=== PATIENT | female | born 1940 | race Caucasian/White ===

== ENCOUNTER 2017-10-04 14:02 | Observation (INO) | payer OTHER ==
[2017-10-04 14:28] VITALS: BMI 31.8
--- NOTE | 2017-10-04 15:05 | PDOC ---
History of Present Illness - General Chief Complaint: Pain, Acute Stated Complaint: ABDOMINAL PAIN, DIARRHEA Time Seen by Provider: 10/04/17 14:36 History Source: Patient Exam Limitations: No Limitations - History of Present Illness Initial Comments: 74 year old woman with h/o GERD, DM, CAD, HTN, HLD, hepatic steatosis, hypothyroidism, and gout who p/w 9/10 umbilical and epigastric discomfort radiating diffusely to her abdomen but nowhere else, which has been fluctuating but always present for the past 2-3 days. This worsened this morning. She additionally notes nausea, vomiting (4 episodes today NBNB), and several episodes of watery brown diarrhea which have been frequent enough to make her skin sore. She has taken Immodium for the symptoms, but no OTC pain relievers or other medications, and has never had these symptoms before. She had a screening colonoscopy about a year ago and was told she had diverticulosis, but denies ever having diverticulitis. Past History - Past Medical History Allergies/Adverse Reactions: Allergies Allergy/AdvReac Type Severity Reaction Status Date / Time No Known Allergies Allergy Verified 10/04/17 14:26 Home Medications: Ambulatory Orders Atorvastatin Ca [Lipitor] 40 mg PO HS 09/02/14 Carvedilol 12.5 mg PO BID 09/02/14 Gemfibrozil 600 mg PO BID 09/02/14 Isosorbide Mononitrate 60 mg PO DAILY 09/02/14 Sitagliptin Phos/Metformin HCl [Janumet Xr 50-1,000 mg Tablet] 1 each PO BID Pantoprazole Sodium [Protonix -] 40 mg PO DAILY #30 tablet.ec 09/05/14 Cholecalciferol (Vitamin D3) [Vitamin D3] 1,000 unit PO DAILY 10/16/14 Glipizide [Glipizide ER] 10 mg PO BID 10/16/14 Levothyroxine [Synthroid -] 100 mcg PO DAILY 10/16/14 Lisinopril [Prinivil -] 2.5 mg PO DAILY 10/16/14 Multivitamins [Multivit ([facility])] 1 tab PO DAILY 10/16/14 Aspirin [ASA -] 81 mg PO DAILY #0 07/09/15 Guar Gum [Benefiber] 1 each PO BID #0 packet 07/09/15 Polyethylene Glycol 3350 [Miralax 255 gm Btl] 17 gm PO DAILY #1 bottle 07/09/15 Anemia: No Asthma: No Cancer: Yes (BREAST LEFT) Cardiac Disorders: Yes (STENTS X 4-2010) CVA: No COPD: No CHF: No Dementia: No Diabetes: Yes GI Disorders: Yes (GASTRITIS.) Disorders: No HTN: Yes Hypercholesterolemia: Yes Liver Disease: No Seizures: No Thyroid Disease: Yes (HYPOTHYROIDISM) - Surgical History Abdominal Surgery: No Appendectomy: No Cardiac Surgery: Yes (CARDIAC STENTS X 4, LAST 2010) Cholecystectomy: No Lung Surgery: No Neurologic Surgery: No Orthopedic Surgery: No - Immunization History Immunization Up to Date: Yes - Suicide/Smoking/Psychosocial Hx Smoking Status: No Smoking History: Never smoked Number of Cigarettes Smoked Daily: 0 Hx Alcohol Use: No Drug/Substance Use Hx: No Substance Use Type: None Hx Substance Use Treatment: No Review of Systems - Review of Systems Constitutional: No: Chills, Fever, Unexplained wgt Loss HEENTM: No: Nose Congestion, Throat Pain Respiratory: No: Cough, Shortness of Breath Cardiac (ROS): No: Chest Pain, Palpitations ABD/GI: No: Constipated, Diarrhea, Nausea, Vomiting : No: Burning, Dysuria Musculoskeletal: No: Back Pain, Neck Pain Integumentary: No: Bruising, Rash Neurological: No: Headache, Numbness, Tingling, Weakness, Dizziness Endocrine: No: Unexplained Weight Gain, Unexplained Weight Loss *Physical Exam - Vital Signs Last Vital Signs Temp Pulse Resp BP Pulse Ox 98 F 102 H 20 120/53 96 10/04/17 14:26 10/04/17 14:26 10/04/17 14:26 10/04/17 14:26 10/04/17 14:26 - Physical Exam General Appearance: Yes: Nourished, Other (nontoxic appearing but a bit uncomfortable, pleasant elderly female accompanied by family at bedside, answering questions appropriately). No: Apparent Distress HEENT: positive: EOMI, ELZA, Normal Voice, Hearing Grossly Normal. negative: Scleral Icterus (R), Scleral Icterus (L), Nasal Congestion Neck: positive: Trachea midline, Supple. negative: Tender, Rigid Respiratory/Chest: positive: Lungs Clear, Normal Breath Sounds. negative: Respiratory Distress, Crackles, Rhonchi, Stridor, Wheezing Cardiovascular: positive: Regular Rhythm, Regular Rate, S1, S2. negative: Edema , JVD, Murmur Gastrointestinal/Abdominal: positive: Normal Bowel Sounds, Soft, Other ( splinting abdomen with arms, minimal umbilical and epigastric ttp without peritoneal signs). negative: Tender, Organomegaly, Pulsatile Mass, Guarding Musculoskeletal: positive: Normal Inspection. negative: Decreased Range of Motion, Vertebral Tenderness Extremity: positive: Normal Capillary Refill, Normal Inspection, Normal Range of Motion. negative: Tender, Cyanosis Integumentary: positive: Normal Color, Dry, Warm. negative: Erythema, Rash, Bruising Neurologic: positive: internist medical doctor md II-XII NML intact (grossly), Fully Oriented, Alert, Normal Mood/Affect, Normal Response, Motor Strength 09/19 ED Treatment Course - LABORATORY CBC & Chemistry Diagram: 10/04/17 16:00 10/04/17 16:00 Medical Decision Making - Medical Decision Making Older adult female patient p/w nonspecific abdominal pain, n/v/d which is NBNB and stool not white. 2 prior intraabdominal surgeries, has been told she has diverticulosis but never had diverticulitis. Initial Vital Signs Temp Pulse Resp BP Pulse Ox 98 F 102 H 20 120/53 96 10/04/17 14:26 10/04/17 14:26 10/04/17 14:26 10/04/17 14:26 10/04/17 14:26 Exam: Well appearing but a bit uncomfortable, splinting abdomen with arms, minimal umbilical and epigastric ttp without peritoneal signs. DDX IBNLT: diverticulitis wwo abscess or perforation, colitis, gastritis, PUD, ACS, UTI/pyelonephritis, AAA/AD, pancreatitis, appendicitis, renal colic, SBO, bowel ischemia, bowel perforation, cholecystitis, ovarian torsion, PID, TOA, ovarian cyst, malignancy, hernia, musculoskeletal, constipation, etc. W/U ordered: CBCD CMP Mg Phos Cardiac panel Lipase UA UCx CT A/P with IV and PO contrast TX ordered: IVF, Ofirmev, Zofran Laboratory Tests 10/04/17 10/04/17 10/04/17 16:00 16:00 16:00 WBC 5.6 RBC 4.16 Hgb 12.7 D Hct 38.5 MCV 92.5 MCH 30.4 MCHC 32.9 RDW 15.3 D Plt Count 171 MPV 10.7 Neutrophils % 83.1 H Lymphocytes % 5.9 L D Monocytes % 8.9 Eosinophils % 2.0 Basophils % 0.1 PTT (Actin FS) Sodium 142 Potassium 5.1 Chloride 111 H Carbon Dioxide 20 L Anion Gap 11 BUN 33 H Creatinine 1.4 H Creat Clearance w eGFR 36.66 Random Glucose 186 H Lactic Acid Calcium 9.1 Phosphorus 2.5 Magnesium 1.1 L Total Bilirubin 0.4 AST 24 ALT 29 Alkaline Phosphatase 74 Creatine Kinase 113 Troponin I < 0.02 Total Protein 7.1 Albumin 3.8 Lipase Urine Color Urine Appearance Urine pH Ur Specific [place] Urine Protein Urine Glucose (UA) Urine Ketones Urine Blood Urine Nitrite Urine Bilirubin Urine Urobilinogen Ur Leukocyte Esterase Stool Occult Blood Blood Type Antibody Screen 10/04/17 10/04/17 10/04/17 16:00 16:00 16:00 WBC RBC Hgb Hct MCV MCH MCHC RDW Plt Count MPV Neutrophils % Lymphocytes % Monocytes % Eosinophils % Basophils % PTT (Actin FS) 27.6 Sodium Potassium Chloride Carbon Dioxide Anion Gap BUN Creatinine Creat Clearance w eGFR Random Glucose Lactic Acid Calcium Phosphorus Magnesium Total Bilirubin AST ALT Alkaline Phosphatase Creatine Kinase Troponin I Total Protein Albumin Lipase 176 Urine Color Ltyellow Urine Appearance Clear Urine pH 5.0 Ur Specific [place] 1.016 Urine Protein Negative Urine Glucose (UA) 1+ H Urine Ketones Negative Urine Blood Negative Urine Nitrite Negative Urine Bilirubin Negative Urine Urobilinogen Negative Ur Leukocyte Esterase Negative Stool Occult Blood Blood Type Antibody Screen 10/04/17 10/04/17 10/04/17 16:00 16:00 16:00 WBC RBC Hgb Hct MCV MCH MCHC RDW Plt Count MPV Neutrophils % Lymphocytes % Monocytes % Eosinophils % Basophils % PTT (Actin FS) Sodium Potassium Chloride Carbon Dioxide Anion Gap BUN Creatinine Creat Clearance w eGFR Random Glucose Lactic Acid 1.6 Calcium Phosphorus Magnesium Total Bilirubin AST ALT Alkaline Phosphatase Creatine Kinase Troponin I Total Protein Albumin Lipase Urine Color Urine Appearance Urine pH Ur Specific [place] Urine Protein Urine Glucose (UA) Urine Ketones Urine Blood Urine Nitrite Urine Bilirubin Urine Urobilinogen Ur Leukocyte Esterase Stool Occult Blood Negative Blood Type Cancelled Antibody Screen Cancelled CXR: NADP Pending CT Abdomen/Pelvis with IV/PO contrast. Patient's care signed out to oncoming resident Dr. Morrison at the end of my shift. *DC/Admit/Observation/Transfer Diagnosis at time of Disposition: Abdominal pain Qualifiers: Abdominal location: generalized Qualified Code(s): R10.84 - Generalized abdominal pain Nausea & vomiting Qualifiers: Vomiting type: unspecified Vomiting Intractability: non-intractable Qualified Code(s): R11.2 - Nausea with vomiting, unspecified Diarrhea Qualifiers: Diarrhea type: unspecified type Qualified Code(s): R19.7 - Diarrhea, unspecified - Referrals Referrals: Rajiv Lino MD [Primary Care Provider] - - Patient Instructions - Post Discharge Activity
[2017-10-04] MEDS ORDERED: ACETAMINOPHEN 1000 MG/100 ML VIAL (NON FORMULARY) IVPB ONE (15:23)
[2017-10-04] MEDS ORDERED: ONDANSETRON 4 MG/2 ML VIAL IVPUSH ONE (15:23)
[2017-10-04] MEDS ORDERED: SODIUM CHLORIDE 0.9% 500 ML INFUS.BAG IV ONE (15:23)
[2017-10-04] MEDS ORDERED: ONDANSETRON 4 MG/2 ML VIAL ONE (15:34)
[2017-10-04] MEDS ORDERED: ACETAMINOPHEN INJECTION 100 ML IVPB ONE (15:34)
[2017-10-04 16:16] LABS: BASO % 0.1 % (0-2.0); HEMATOCRIT 38.5 % (32.4-45.2); HEMOGLOBIN 12.7 GM/dL (10.7-15.3); LYMPH % 5.9 % (8-40); MCH 30.4 pg (25.7-33.7); MCHC 32.9 g/dl (32.0-36.0); MEAN CELL VOLUME 92.5 fl (80-96); MEAN PLT VOLUME 10.7 fl (7.5-11.1); MONO % 8.9 % (3.8-10.2); NEUT % 83.1 % (42.8-82.8); PLATELET COUNT 171 K/MM3 (134-434); RBC 4.16 M/mm3 (3.60-5.2); RDW 15.3 % (11.6-15.6); WHITE BLOOD COUNT 5.6 K/mm3 (4.0-10.0)
[2017-10-04 17:21] LABS: URINE APPEARANCE CLEAR; URINE BILIRUBIN NEGATIVE (<2.0 mg/dL); URINE COLOR LTYELLOW; URINE GLUCOSE (UA) 1+ (NEGATIVE); URINE KETONE NEGATIVE (NEGATIVE); URINE LEUK ESTERASE NEGATIVE (NEGATIVE); URINE NITRITE NEGATIVE (NEGATIVE); URINE PROTEIN NEGATIVE (NEGATIVE); URINE UROBILINOGEN NEGATIVE mg/dL (0.2-1.0)
[2017-10-04 17:22] LABS: ALBUMIN 3.8 g/dl (3.4-5.0); ALK PHOS 74 U/L (45-117); ANION GAP 11 (8-16); BILIRUBIN,TOTAL 0.4 mg/dL (0.2-1.0); BLOOD UREA NITROGEN 33 mg/dL (7-18); CALCIUM 9.1 mg/dL (8.5-10.1); CHLORIDE 111 mmol/L (98-107); CO2 20 mmol/L (21-32); CREATININE 1.4 mg/dL (0.55-1.02); GLUCOSE,RANDOM 186 mg/dL (74-106); PHOSPHOROUS 2.5 mg/dL (2.5-4.9); SGPT/ALT 29 U/L (12-78); SODIUM 142 mmol/L (136-145); TOT PROT 7.1 g/dl (6.4-8.2)
[2017-10-04 17:25] LABS: MAGNESIUM 1.1 mg/dL (1.8-2.4); POTASSIUM 5.1 mmol/L (3.5-5.1); SGOT/AST 24 U/L (15-37)
--- NOTE | 2017-10-04 18:18 | PDOC ---
Attending Attestation - Resident Resident Name: Nieves Young - ED Attending Attestation I have performed the following: I have examined & evaluated the patient, The case was reviewed & discussed with the resident, I agree w/resident's findings & plan, Exceptions are as noted - HPI HPI: 10/04/17 18:18 74 year old woman with h/o GERD, DM, CAD, HTN, HLD, hepatic steatosis, hypothyroidism, and gout who presents with abdominal pain x 3 days. Pt reports N +V as well and watery brown diarrhea. Pt denies any F/C. Denies CP/SOB. States that the pain is mostly in the center of her abdomen but radiates out diffusely. Pt has h/o diverticulosis but never had diverticulitis. - Physicial Exam PE: 10/04/17 18:19 GENERAL: Awake, alert, and fully oriented, in no acute distress HEAD: No signs of trauma EYES: PERRLA, EOMI, sclera anicteric, conjunctiva clear ENT: Auricles normal inspection, hearing grossly normal, nares patent, oropharynx clear without exudates. Moist mucosa NECK: Nontender, no stepoffs, Normal ROM, supple, no lymphadenopathy, JVD, or masses LUNGS: Breath sounds equal, clear to auscultation bilaterally. No wheezes, and no crackles HEART: Regular rate and rhythm, normal S1 and S2, no murmurs, rubs or gallops ABDOMEN: + LLQ tenderness to palpation, normoactive bowel sounds. No guarding, no rebound. No masses EXTREMITIES: Normal range of motion, no edema. No clubbing or cyanosis. No cords, erythema, or tenderness NEUROLOGICAL: Cranial nerves II through XII intact. 5/5 strength and sensation in all extremities, Normal speech, normal gait SKIN: Warm, Dry, normal turgor, no rashes or lesions noted." - Medical Decision Making 10/04/17 18:20 77 F with abdominal pain, vomiting, and diarrhea. Possible gastroenteritis. However, will r/o colitis vs diverticulitis. - Labs - CTAP
[2017-10-04] MEDS ORDERED: MAGNESIUM SULF 50% (8.12 MEQ/2 ML-1 GM VIAL) IVPB ONE (19:10)
--- NOTE | 2017-10-04 19:16 | PDOC ---
*Physical Exam - Vital Signs Last Vital Signs Temp Pulse Resp BP Pulse Ox 98 F 76 18 106/50 95 10/04/17 14:26 10/04/17 21:01 10/04/17 21:01 10/04/17 21:01 10/04/17 21:01 <Mynor Moffett - Last Filed: 10/05/17 00:29> - Vital Signs Last Vital Signs Temp Pulse Resp BP Pulse Ox 98 F 102 H 20 120/53 96 10/04/17 14:26 10/04/17 14:26 10/04/17 14:26 10/04/17 14:26 10/04/17 14:26 <Axel Morrison - Last Filed: 10/05/17 01:17> ED Treatment Course - LABORATORY CBC & Chemistry Diagram: 10/04/17 16:00 10/04/17 16:00 - ADDITIONAL ORDERS Additional order review: Laboratory Results 10/04/17 10/04/17 10/04/17 16:00 16:00 16:00 PTT (Actin FS) Sodium Potassium Chloride Carbon Dioxide Anion Gap BUN Creatinine Creat Clearance w eGFR Random Glucose Lactic Acid 1.6 Calcium Phosphorus Magnesium Total Bilirubin AST ALT Alkaline Phosphatase Creatine Kinase Troponin I Total Protein Albumin Lipase Urine Color Urine Appearance Urine pH Ur Specific [place] Urine Protein Urine Glucose (UA) Urine Ketones Urine Blood Urine Nitrite Urine Bilirubin Urine Urobilinogen Ur Leukocyte Esterase Stool Occult Blood Negative Blood Type Cancelled Antibody Screen Cancelled 10/04/17 10/04/17 10/04/17 16:00 16:00 16:00 PTT (Actin FS) 27.6 Sodium Potassium Chloride Carbon Dioxide Anion Gap BUN Creatinine Creat Clearance w eGFR Random Glucose Lactic Acid Calcium Phosphorus Magnesium Total Bilirubin AST ALT Alkaline Phosphatase Creatine Kinase Troponin I Total Protein Albumin Lipase 176 Urine Color Ltyellow Urine Appearance Clear Urine pH 5.0 Ur Specific [place] 1.016 Urine Protein Negative Urine Glucose (UA) 1+ H Urine Ketones Negative Urine Blood Negative Urine Nitrite Negative Urine Bilirubin Negative Urine Urobilinogen Negative Ur Leukocyte Esterase Negative Stool Occult Blood Blood Type Antibody Screen 10/04/17 10/04/17 16:00 16:00 PTT (Actin FS) Sodium 142 Potassium 5.1 Chloride 111 H Carbon Dioxide 20 L Anion Gap 11 BUN 33 H Creatinine 1.4 H Creat Clearance w eGFR 36.66 Random Glucose 186 H Lactic Acid Calcium 9.1 Phosphorus 2.5 Magnesium 1.1 L Total Bilirubin 0.4 AST 24 ALT 29 Alkaline Phosphatase 74 Creatine Kinase 113 Troponin I < 0.02 Total Protein 7.1 Albumin 3.8 Lipase Urine Color Urine Appearance Urine pH Ur Specific [place] Urine Protein Urine Glucose (UA) Urine Ketones Urine Blood Urine Nitrite Urine Bilirubin Urine Urobilinogen Ur Leukocyte Esterase Stool Occult Blood Blood Type Antibody Screen 10/04/17 16:00 RBC 4.16 MCV 92.5 MCHC 32.9 RDW 15.3 D MPV 10.7 Neutrophils % 83.1 H Lymphocytes % 5.9 L D Monocytes % 8.9 Eosinophils % 2.0 Basophils % 0.1 - Medications Given in the ED: ED Medications Discontinued Medications Generic Name Dose Route Start Last Admin Trade Name Marcela PRN Reason Stop Dose Admin Acetaminophen 1,000 mg 10/04/17 15:23 10/04/17 16:08 Ofirmev Injection - IVPB 10/04/17 15:24 1,000 mg ONCE ONE Administration Magnesium Sulfate/Dextrose 1 gm 10/04/17 20:30 10/04/17 20:44 Magnesium 1gm/D5w - IVPB 10/04/17 20:31 1 gm ONCE ONE Administration Ondansetron HCl 4 mg 10/04/17 15:23 10/04/17 16:08 Zofran Injection IVPUSH 10/04/17 15:24 4 mg ONCE ONE Administration Sodium Chloride 1,000 ml 10/04/17 15:23 10/04/17 16:08 Normal Saline - IV 10/04/17 15:24 1,000 ml ONCE ONE Administration <Mynor Moffett - Last Filed: 10/05/17 00:29> - LABORATORY CBC & Chemistry Diagram: 10/04/17 16:00 10/04/17 16:00 - ADDITIONAL ORDERS Additional order review: Laboratory Results 10/04/17 10/04/17 10/04/17 16:00 16:00 16:00 PTT (Actin FS) Sodium Potassium Chloride Carbon Dioxide Anion Gap BUN Creatinine Creat Clearance w eGFR Random Glucose Lactic Acid 1.6 Calcium Phosphorus Magnesium Total Bilirubin AST ALT Alkaline Phosphatase Creatine Kinase Troponin I Total Protein Albumin Lipase Urine Color Urine Appearance Urine pH Ur Specific [place] Urine Protein Urine Glucose (UA) Urine Ketones Urine Blood Urine Nitrite Urine Bilirubin Urine Urobilinogen Ur Leukocyte Esterase Stool Occult Blood Negative Blood Type Cancelled Antibody Screen Cancelled 10/04/17 10/04/17 10/04/17 16:00 16:00 16:00 PTT (Actin FS) 27.6 Sodium Potassium Chloride Carbon Dioxide Anion Gap BUN Creatinine Creat Clearance w eGFR Random Glucose Lactic Acid Calcium Phosphorus Magnesium Total Bilirubin AST ALT Alkaline Phosphatase Creatine Kinase Troponin I Total Protein Albumin Lipase 176 Urine Color Ltyellow Urine Appearance Clear Urine pH 5.0 Ur Specific [place] 1.016 Urine Protein Negative Urine Glucose (UA) 1+ H Urine Ketones Negative Urine Blood Negative Urine Nitrite Negative Urine Bilirubin Negative Urine Urobilinogen Negative Ur Leukocyte Esterase Negative Stool Occult Blood Blood Type Antibody Screen 10/04/17 10/04/17 16:00 16:00 PTT (Actin FS) Sodium 142 Potassium 5.1 Chloride 111 H Carbon Dioxide 20 L Anion Gap 11 BUN 33 H Creatinine 1.4 H Creat Clearance w eGFR 36.66 Random Glucose 186 H Lactic Acid Calcium 9.1 Phosphorus 2.5 Magnesium 1.1 L Total Bilirubin 0.4 AST 24 ALT 29 Alkaline Phosphatase 74 Creatine Kinase 113 Troponin I < 0.02 Total Protein 7.1 Albumin 3.8 Lipase Urine Color Urine Appearance Urine pH Ur Specific [place] Urine Protein Urine Glucose (UA) Urine Ketones Urine Blood Urine Nitrite Urine Bilirubin Urine Urobilinogen Ur Leukocyte Esterase Stool Occult Blood Blood Type Antibody Screen 10/04/17 16:00 RBC 4.16 MCV 92.5 MCHC 32.9 RDW 15.3 D MPV 10.7 Neutrophils % 83.1 H Lymphocytes % 5.9 L D Monocytes % 8.9 Eosinophils % 2.0 Basophils % 0.1 - Medications Given in the ED: ED Medications Discontinued Medications Generic Name Dose Route Start Last Admin Trade Name Freq PRN Reason Stop Dose Admin Acetaminophen 1,000 mg 10/04/17 15:23 10/04/17 16:08 Ofirmev Injection - IVPB 10/04/17 15:24 1,000 mg ONCE ONE Administration Ondansetron HCl 4 mg 10/04/17 15:23 10/04/17 16:08 Zofran Injection IVPUSH 10/04/17 15:24 4 mg ONCE ONE Administration Sodium Chloride 1,000 ml 10/04/17 15:23 10/04/17 16:08 Normal Saline - IV 10/04/17 15:24 1,000 ml ONCE ONE Administration <Axel Morrison - Last Filed: 10/05/17 01:17> Medical Decision Making - Medical Decision Making 10/04/17 9:00pm Call placed to Imaging television cable installer for estimated time on patient's CT read. Awaiting results. 10:30pm Second call placed to [employer] television cable installer because patient's report was posted at 10: 36pm, however, the report reads unsupported format. Awaiting results. 12:30am Third call placed to [employer] television cable installer due to patient's report not being updated, awaiting results. <Mynor Moffett - Last Filed: 10/05/17 00:29> - Medical Decision Making 10/04/17 19:15 Care taken over from Dr. Gonzalez. 10/04/17 22:37 Patient reporting improvement of symptoms. Labs grossly unconcerning as below. 10/04/17 23:07 ED obs-ing patient per ED protocol. 10/05/17 01:13 CT Concerning for distal colon pseudo thickening; possible small colitis. Admitting for further workup. Laboratory Results - last 24 hr 10/04/17 10/04/17 10/04/17 16:00 16:00 16:00 WBC 5.6 RBC 4.16 Hgb 12.7 D Hct 38.5 MCV 92.5 MCH 30.4 MCHC 32.9 RDW 15.3 D Plt Count 171 MPV 10.7 Neutrophils % 83.1 H Lymphocytes % 5.9 L D Monocytes % 8.9 Eosinophils % 2.0 Basophils % 0.1 PTT (Actin FS) Sodium 142 Potassium 5.1 Chloride 111 H Carbon Dioxide 20 L Anion Gap 11 BUN 33 H Creatinine 1.4 H Creat Clearance w eGFR 36.66 Random Glucose 186 H Lactic Acid Calcium 9.1 Phosphorus 2.5 Magnesium 1.1 L Total Bilirubin 0.4 AST 24 ALT 29 Alkaline Phosphatase 74 Creatine Kinase 113 Troponin I < 0.02 Total Protein 7.1 Albumin 3.8 Lipase Urine Color Urine Appearance Urine pH Ur Specific [place] Urine Protein Urine Glucose (UA) Urine Ketones Urine Blood Urine Nitrite Urine Bilirubin Urine Urobilinogen Ur Leukocyte Esterase Stool Occult Blood Blood Type Antibody Screen 10/04/17 10/04/17 10/04/17 16:00 16:00 16:00 WBC RBC Hgb Hct MCV MCH MCHC RDW Plt Count MPV Neutrophils % Lymphocytes % Monocytes % Eosinophils % Basophils % PTT (Actin FS) 27.6 Sodium Potassium Chloride Carbon Dioxide Anion Gap BUN Creatinine Creat Clearance w eGFR Random Glucose Lactic Acid Calcium Phosphorus Magnesium Total Bilirubin AST ALT Alkaline Phosphatase Creatine Kinase Troponin I Total Protein Albumin Lipase 176 Urine Color Ltyellow Urine Appearance Clear Urine pH 5.0 Ur Specific [place] 1.016 Urine Protein Negative Urine Glucose (UA) 1+ H Urine Ketones Negative Urine Blood Negative Urine Nitrite Negative Urine Bilirubin Negative Urine Urobilinogen Negative Ur Leukocyte Esterase Negative Stool Occult Blood Blood Type Antibody Screen 10/04/17 10/04/17 10/04/17 16:00 16:00 16:00 WBC RBC Hgb Hct MCV MCH MCHC RDW Plt Count MPV Neutrophils % Lymphocytes % Monocytes % Eosinophils % Basophils % PTT (Actin FS) Sodium Potassium Chloride Carbon Dioxide Anion Gap BUN Creatinine Creat Clearance w eGFR Random Glucose Lactic Acid 1.6 Calcium Phosphorus Magnesium Total Bilirubin AST ALT Alkaline Phosphatase Creatine Kinase Troponin I Total Protein Albumin Lipase Urine Color Urine Appearance Urine pH Ur Specific [place] Urine Protein Urine Glucose (UA) Urine Ketones Urine Blood Urine Nitrite Urine Bilirubin Urine Urobilinogen Ur Leukocyte Esterase Stool Occult Blood Negative Blood Type Cancelled Antibody Screen Cancelled <Axel Morrison - Last Filed: 10/05/17 01:17> *DC/Admit/Observation/Transfer - Attestations Scribe Attestion: 10/04/17 22:51 Documentation prepared by Mynor Moffett, acting as medical physics researcher for Porfirio Reyes MD. <Mynor Moffett - Last Filed: 10/05/17 00:29> - Discharge Dispostion Decision to Admit order: Yes <Axel Morrison - Last Filed: 10/05/17 01:17> Diagnosis at time of Disposition: Abdominal pain Qualifiers: Abdominal location: generalized Qualified Code(s): R10.84 - Generalized abdominal pain Nausea & vomiting Qualifiers: Vomiting type: unspecified Vomiting Intractability: non-intractable Qualified Code(s): R11.2 - Nausea with vomiting, unspecified Diarrhea Qualifiers: Diarrhea type: unspecified type Qualified Code(s): R19.7 - Diarrhea, unspecified
[2017-10-04] MEDS ORDERED: MAGNESIUM 1GM/D5W 100ML - 100 ML IVPB IVPB ONE (20:30)
--- NOTE | 2017-10-04 23:46 | HP ---
CHIEF COMPLAINT: abdominal pain PCP: Dr. Cornelius HISTORY OF PRESENT ILLNESS: 77 yr old woman with DM, HTN, HLD, hx of left breast Ca s/p radiation, gout, presents with abdominal pain, NBNB vomiting and multiple episodes of loose bowel movements. abdominal pain is 9/10, diffuse, radiating out from her umbilicus, lasting for past 3 days with progression this morning. a/w nausea and vomiting 4 episodes at home and 1 earlier in ed. no relief with OTC immodium. denies previous hx of symptoms. She was on antibiotics 1 month ago for bronchitis, 1 was for 10days and one for 5days but she does not recall the name of the antibiotics denies hematochezia, constipation, fever, chest pain, trouble swallowing, sob. ER course was notable for: (1) abd pelvis CT with colitis (2) (3) Recent Travel: none PAST MEDICAL HISTORY: DM, HTN, HLD, hepatic steatosis, hx of breast ca PAST SURGICAL HISTORY: hysterectomy due to fibriods age 51 cardiac stents, most recent in 2010 Social History: Smoking: denies Alcohol:denies Drugs: denies Family History: [place] Allergies No Known Allergies Allergy (Verified 10/04/17 14:26) HOME MEDICATIONS: Home Medications Medication Instructions Recorded Atorvastatin Ca [Lipitor] 40 mg PO HS 09/02/14 Carvedilol 12.5 mg PO BID 09/02/14 Gemfibrozil 600 mg PO BID 09/02/14 Isosorbide Mononitrate 60 mg PO DAILY 09/02/14 Sitagliptin Phos/Metformin HCl 1 each PO BID 09/02/14 [Janumet Xr 50-1,000 mg Tablet] Pantoprazole Sodium [Protonix -] 40 mg PO DAILY #30 tablet.ec 09/05/14 Cholecalciferol (Vitamin D3) 1,000 unit PO DAILY 10/16/14 [Vitamin D3] Glipizide [Glipizide ER] 10 mg PO BID 10/16/14 Levothyroxine [Synthroid -] 100 mcg PO DAILY 10/16/14 Lisinopril [Prinivil -] 2.5 mg PO DAILY 10/16/14 Multivitamins [Multivit ([facility] 1 tab PO DAILY 10/16/14 Formulary)] Aspirin [ASA -] 81 mg PO DAILY #0 07/09/15 Guar Gum [Benefiber] 1 each PO BID #0 packet 07/09/15 Polyethylene Glycol 3350 [Miralax 17 gm PO DAILY #1 bottle 07/09/15 255 gm Btl] REVIEW OF SYSTEMS CONSTITUTIONAL: Absent: fever, chills, diaphoresis, generalized weakness, malaise, loss of appetite, weight change HEENT: Absent: rhinorrhea, nasal congestion, throat pain, throat swelling, difficulty swallowing, mouth swelling, ear pain, eye pain, visual changes CARDIOVASCULAR: Absent: chest pain, syncope, palpitations, irregular heart rate, lightheadedness , peripheral edema RESPIRATORY: Absent: cough, shortness of breath, dyspnea with exertion, orthopnea, wheezing, stridor, hemoptysis GASTROINTESTINAL: Present: abdominal pain, nausea, vomiting, diarrhea, Absent: , abdominal distension, constipation, melena, hematochezia GENITOURINARY: Absent: dysuria, frequency, urgency, hesitancy, hematuria, flank pain, MUSCULOSKELETAL: Absent: myalgia, arthralgia, joint swelling, back pain, neck pain SKIN: Absent: rash, itching, pallor HEMATOLOGIC/IMMUNOLOGIC: Absent: easy bleeding, easy bruising, lymphadenopathy, frequent infections ENDOCRINE: Absent: unexplained weight gain, unexplained weight loss, heat intolerance, cold intolerance NEUROLOGIC: Absent: headache, focal weakness or paresthesias, dizziness, unsteady gait, seizure, mental status changes, bladder or bowel incontinence PHYSICAL EXAMINATION Vital Signs - 24 hr 10/04/17 10/04/17 14:26 21:01 Temperature 98 F Pulse Rate 102 H Pulse Rate [ 76 Left] Respiratory 20 18 Rate Blood Pressure 120/53 Blood Pressure 106/50 [Right Arm] O2 Sat by Pulse 96 95 Oximetry (%) GENERAL: Awake, alert, and fully oriented, in no acute distress. HEAD: Normal with no signs of trauma. EYES: Pupils equal, round and reactive to light, extraocular movements intact, sclera anicteric, conjunctiva clear. No lid lag. EARS, NOSE, THROAT: oropharynx clear without exudates. Moist mucous membranes. NECK: Normal range of motion, supple without lymphadenopathy, JVD, or masses. LUNGS: Breath sounds equal, clear to auscultation bilaterally. No wheezes, and no crackles. No accessory muscle use. HEART: Regular rate and rhythm, normal S1 and S2 w. soft systolic murmur in rusb , rub or gallop. ABDOMEN: Soft, nontender, not distended, normoactive bowel sounds, no guarding, no rebound, no masses. MUSCULOSKELETAL: Normal range of motion at all joints. No bony deformities or tenderness. No CVA tenderness. UPPER EXTREMITIES: 2+ radial pulses, warm, well-perfused. No cyanosis. No clubbing. No peripheral edema. LOWER EXTREMITIES: 2+ dp pulses, warm, well-perfused. No calf tenderness. No peripheral edema. NEUROLOGICAL: Cranial nerves II-XII intact. Normal speech. Normal gait. 5/5 handgrip. PSYCHIATRIC: Cooperative. Good eye contact. Appropriate mood and affect. SKIN: Warm, dry, normal turgor, no rashes or lesions noted, normal capillary refill. Laboratory Results - last 24 hr 10/04/17 10/04/17 10/04/17 16:00 16:00 16:00 WBC 5.6 RBC 4.16 Hgb 12.7 D Hct 38.5 MCV 92.5 MCH 30.4 MCHC 32.9 RDW 15.3 D Plt Count 171 MPV 10.7 Neutrophils % 83.1 H Lymphocytes % 5.9 L D Monocytes % 8.9 Eosinophils % 2.0 Basophils % 0.1 PTT (Actin FS) Sodium 142 Potassium 5.1 Chloride 111 H Carbon Dioxide 20 L Anion Gap 11 BUN 33 H Creatinine 1.4 H Creat Clearance w eGFR 36.66 Random Glucose 186 H Lactic Acid Calcium 9.1 Phosphorus 2.5 Magnesium 1.1 L Total Bilirubin 0.4 AST 24 ALT 29 Alkaline Phosphatase 74 Creatine Kinase 113 Troponin I < 0.02 Total Protein 7.1 Albumin 3.8 Lipase Urine Color Urine Appearance Urine pH Ur Specific [place] Urine Protein Urine Glucose (UA) Urine Ketones Urine Blood Urine Nitrite Urine Bilirubin Urine Urobilinogen Ur Leukocyte Esterase Stool Occult Blood Blood Type Antibody Screen 10/04/17 10/04/17 10/04/17 16:00 16:00 16:00 WBC RBC Hgb Hct MCV MCH MCHC RDW Plt Count MPV Neutrophils % Lymphocytes % Monocytes % Eosinophils % Basophils % PTT (Actin FS) 27.6 Sodium Potassium Chloride Carbon Dioxide Anion Gap BUN Creatinine Creat Clearance w eGFR Random Glucose Lactic Acid Calcium Phosphorus Magnesium Total Bilirubin AST ALT Alkaline Phosphatase Creatine Kinase Troponin I Total Protein Albumin Lipase 176 Urine Color Ltyellow Urine Appearance Clear Urine pH 5.0 Ur Specific [place] 1.016 Urine Protein Negative Urine Glucose (UA) 1+ H Urine Ketones Negative Urine Blood Negative Urine Nitrite Negative Urine Bilirubin Negative Urine Urobilinogen Negative Ur Leukocyte Esterase Negative Stool Occult Blood Blood Type Antibody Screen 10/04/17 10/04/17 10/04/17 16:00 16:00 16:00 WBC RBC Hgb Hct MCV MCH MCHC RDW Plt Count MPV Neutrophils % Lymphocytes % Monocytes % Eosinophils % Basophils % PTT (Actin FS) Sodium Potassium Chloride Carbon Dioxide Anion Gap BUN Creatinine Creat Clearance w eGFR Random Glucose Lactic Acid 1.6 Calcium Phosphorus Magnesium Total Bilirubin AST ALT Alkaline Phosphatase Creatine Kinase Troponin I Total Protein Albumin Lipase Urine Color Urine Appearance Urine pH Ur Specific [place] Urine Protein Urine Glucose (UA) Urine Ketones Urine Blood Urine Nitrite Urine Bilirubin Urine Urobilinogen Ur Leukocyte Esterase Stool Occult Blood Negative Blood Type Cancelled Antibody Screen Cancelled Active Medications Acetaminophen (Tylenol -) 1,000 mg PO TID PRN PRN Reason: PAIN Amlodipine Besylate (Norvasc -) 5 mg PO DAILY [facility] Anastrozole (Arimidex -) 1 mg PO DAILY [facility] Aspirin (Asa -) 81 mg PO DAILY [facility] Atorvastatin Calcium (Lipitor -) 40 mg PO HS [facility] Carvedilol (Coreg -) 12.5 mg PO BID [facility] Gemfibrozil (Lopid -) 600 mg PO BID [facility] Glipizide (Glucotrol -) 10 mg PO BIDAC [facility] Metronidazole (Flagyl 500mg Premixed Ivpb -) 500 mg in 100 mls @ 100 mls/hr IVPB Q8H-IV [facility] Last Admin: 10/05/17 02:26 Dose: 100 mls/hr Isosorbide Mononitrate (Imdur -) 60 mg PO DAILY [facility] Levothyroxine Sodium (Synthroid -) 100 mcg PO DAILY@0700 [facility] Non-Formulary Medication (Linagliptin/Metformin Hcl [Jentadueto 2.5 Mg-850 Mg Tab]) 1 each PO BID [facility] Pantoprazole Sodium (Protonix -) 40 mg PO DAILY [facility] ASSESSMENT/PLAN: 77 yr old woman with DM, HTN presents with abdominal pain, placed on observation , pending CT for colitis. #Abdominal pain - likely due to colitis seen on CT scan. - r/o c.dif due to recent abx use - taking po without difficulty now, po challenge - levaquin + flagyl for colitis IV, can likely convert to po in the morning #DILLON - baseline Cr 1.3 - likely due to poor po intake/GI loss of fluids, trend in the AM - IVF for hydration NS @75cc/hr #DM - last A1c 9.4 in 10/2016, check now - NISS with BGM ACHS while inpatient - hold home medications: jentadeuta, gemfibrozil, glipizide #HTN - continue home medications - norvasc 5mg, carvedilol 12.5mg BID #hypothyroidism - 100mcg po daily #HLD - atorvastatin 40mg po hs #dvt prophylaxis Hep subq TID diet: diabetic/low sodium #Dispo: can likely be dc'd with po antibiotics and GI f.u for colonoscopy in 4- 6 six weeks in the morning if tolerating PO and c.diff negative Visit type - Emergency Visit Emergency Visit: Yes ED Registration Date: 10/04/17 Care time: The patient presented to the Emergency Department on the above date and was hospitalized for further evaluation of their emergent condition. - New Patient This patient is new to me today: Yes Date on this admission: 10/04/17 - Critical Care Critical Care patient: No Hospitalist Screening - Colonoscopy Questionnaire Colonoscopy Questionnaire: Colonoscopy Questionnaire - Patient: 50 - 75 years old and never had a screening colonoscopy: Unknown History of colon or rectal polyps, or CA: Unknown History of IBD, Crohn's disease or UC: Unknown History of abdominal radiation therapy as a child: Unknown - Relative: 1 with colon or rectal CA, or polyps at age 60 or younger: Unknown Colon or rectal CA diagnosed at age 45 or younger: Unknown Multiple relatives with colon or rectal CA: Unknown - Outcome: Screening Result: Negative Screen
[2017-10-05] MEDS ORDERED: ACETAMINOPHEN 325 MG TABLET (FP) PO PRN (02:18)
--- NOTE | 2017-10-05 02:25 | PN ---
Teaching Attending Note Name of Resident: Floridalma Suggs ATTENDING PHYSICIAN STATEMENT I saw and evaluated the patient. I reviewed the resident's note and discussed the case with the resident. I agree with the resident's findings and plan as documented. SUBJECTIVE: Patient is a 77 year old woman who presented with chief complaint of abdominal pain, diarrhea and vomiting for one day. The diarrhea was more troubling for her and she has not vomited in over 12 hours. While in the ER she improved and is now pain free with no recent BM. CT scan showed possible mild colitis. Has PMH of DM, HTN, HLD, and left breast Cancer s/p radiation. OBJECTIVE: She is alert and in no acute distress. Vital Signs Period Temp Pulse Resp BP Sys/Chapa Pulse Ox Last 24 Hr 98 F 74-102 18-20 106-142/50-71 95-99 HEENT: No Jaundice, eye redness or discharge, PERRLA, EOMI. External ears are normal and hearing is grossly intact. No nasal discharge. Neck: Supple, nontender. No palpable adenopathy or thyromegaly. No JVD Chest: Good effort. Clear to auscultation and percussion. Heart: Regular. No S3, rub or murmur Abdomen: Obese. Not distended, soft, nontender and no HSM. No rebound or guarding. Normoactive bowel sounds. Ext: Peripheral pulses intact. No leg edema. Skin: Warm and dry. No petechiae, rash or ecchymosis. Neuro: Alert. Oriented x3. CN 2-12 grossly intact. Sensation grossly intact in all four extremities and DTR are symmetric. Current Medications Generic Name Dose Route Start Last Admin Trade Name Freq PRN Reason Stop Dose Admin Metronidazole 500 mg in 100 mls @ 100 mls/hr 10/05/17 02:30 Flagyl 500mg Premixed Ivpb - IVPB Q8H-IV [facility] Levofloxacin 500 mg in 100 mls @ 100 mls/hr 10/05/17 02:16 Levaquin 500 Mg Premixed Ivpb - IVPB 10/05/17 03:15 ONCE ONE Protocol Home Medications Medication Instructions Recorded Acetaminophen [Tylenol] 1,000 mg PO TID PRN 10/05/17 Amlodipine Besylate [Norvasc -] 5 mg PO DAILY 10/05/17 Anastrozole [Arimidex -] 1 mg PO DAILY 10/05/17 Aspirin 81 mg PO DAILY 10/05/17 Atorvastatin Ca [Lipitor] 40 mg PO HS 10/05/17 Carvedilol [Coreg -] 12.5 mg PO BID 10/05/17 Gemfibrozil 600 mg PO BID 10/05/17 Glipizide 10 mg PO BID 10/05/17 Isosorbide Mononitrate [Isosorbide 60 mg PO DAILY 10/05/17 Mononitrate ER] Levothyroxine [Synthroid -] 100 mcg PO DAILY 10/05/17 Linagliptin/Metformin HCl 1 each PO BID 10/05/17 [Jentadueto 2.5 mg-850 mg Tab] Pantoprazole Sodium 40 mg PO DAILY 10/05/17 Laboratory Results - last 24 hr 10/04/17 10/04/17 10/04/17 16:00 16:00 16:00 WBC 5.6 RBC 4.16 Hgb 12.7 D Hct 38.5 MCV 92.5 MCH 30.4 MCHC 32.9 RDW 15.3 D Plt Count 171 MPV 10.7 Neutrophils % 83.1 H Lymphocytes % 5.9 L D Monocytes % 8.9 Eosinophils % 2.0 Basophils % 0.1 PTT (Actin FS) Sodium 142 Potassium 5.1 Chloride 111 H Carbon Dioxide 20 L Anion Gap 11 BUN 33 H Creatinine 1.4 H Creat Clearance w eGFR 36.66 Random Glucose 186 H Lactic Acid Calcium 9.1 Phosphorus 2.5 Magnesium 1.1 L Total Bilirubin 0.4 AST 24 ALT 29 Alkaline Phosphatase 74 Creatine Kinase 113 Troponin I < 0.02 Total Protein 7.1 Albumin 3.8 Lipase Urine Color Urine Appearance Urine pH Ur Specific [place] Urine Protein Urine Glucose (UA) Urine Ketones Urine Blood Urine Nitrite Urine Bilirubin Urine Urobilinogen Ur Leukocyte Esterase Stool Occult Blood Blood Type Antibody Screen 10/04/17 10/04/17 10/04/17 16:00 16:00 16:00 WBC RBC Hgb Hct MCV MCH MCHC RDW Plt Count MPV Neutrophils % Lymphocytes % Monocytes % Eosinophils % Basophils % PTT (Actin FS) 27.6 Sodium Potassium Chloride Carbon Dioxide Anion Gap BUN Creatinine Creat Clearance w eGFR Random Glucose Lactic Acid Calcium Phosphorus Magnesium Total Bilirubin AST ALT Alkaline Phosphatase Creatine Kinase Troponin I Total Protein Albumin Lipase 176 Urine Color Ltyellow Urine Appearance Clear Urine pH 5.0 Ur Specific [place] 1.016 Urine Protein Negative Urine Glucose (UA) 1+ H Urine Ketones Negative Urine Blood Negative Urine Nitrite Negative Urine Bilirubin Negative Urine Urobilinogen Negative Ur Leukocyte Esterase Negative Stool Occult Blood Blood Type Antibody Screen 10/04/17 10/04/17 10/04/17 16:00 16:00 16:00 WBC RBC Hgb Hct MCV MCH MCHC RDW Plt Count MPV Neutrophils % Lymphocytes % Monocytes % Eosinophils % Basophils % PTT (Actin FS) Sodium Potassium Chloride Carbon Dioxide Anion Gap BUN Creatinine Creat Clearance w eGFR Random Glucose Lactic Acid 1.6 Calcium Phosphorus Magnesium Total Bilirubin AST ALT Alkaline Phosphatase Creatine Kinase Troponin I Total Protein Albumin Lipase Urine Color Urine Appearance Urine pH Ur Specific [place] Urine Protein Urine Glucose (UA) Urine Ketones Urine Blood Urine Nitrite Urine Bilirubin Urine Urobilinogen Ur Leukocyte Esterase Stool Occult Blood Negative Blood Type Cancelled Antibody Screen Cancelled ASSESSMENT AND PLAN: 1. Mild colitis - Will be admitted as an observation case and started on Flagyl and Levaquin for colitis. Send any new loose BM for C. Diff toxin. Outpatient GI followup for colonoscopy. 2. DILLON with high normal potassium - Will treat with IV NS at 50 ml/hour and encourage liberal oral fluids to correct azotemia and enhance potassium excretion. Avoid NSAIDS and aminoglycosides. 3. DM - Hold metformin/linagliptin and treat with insulin sliding scale. 4. DVT prophylaxis - Heparin 5000u sq tid 5. Advance directives - Full code
[2017-10-05] MEDS ORDERED: ACETAMINOPHEN 500 MG TABLET (FP) PO PRN (03:49)
[2017-10-05] MEDS: SODIUM CHLORIDE 1,000 ML IV SCH (04:35)
[2017-10-05] MEDS ORDERED: HEPARIN NA (PORCINE) 5,000 UNITS/ML 1ML VIAL ONE (05:48)
[2017-10-05] MEDS ORDERED: LEVOTHYROXINE NA 25 MCG TABLET (FP) ONE (05:48)
[2017-10-05] MEDS: HEPARIN NA (PORCINE) 5,000 UNITS/ML 1ML VIAL SQ SCH ×3 (05:52→22:46)
[2017-10-05] MEDS: LEVOTHYROXINE NA 100 MCG TABLET (FP) PO SCH (06:55)
[2017-10-05] MEDS ORDERED: glipiZIDE 10 MG TABLET (FP) PO SCH (07:00)
[2017-10-05] MEDS: amLODIPine BESYLATE 5 MG TABLET (FP) PO SCH (09:33)
[2017-10-05] MEDS: ASPIRIN 81 MG CHEWABLE TABLETS PO SCH (09:33)
[2017-10-05] MEDS: PANTOPRAZOLE 40 MG TABLET (FP) PO SCH (09:33)
[2017-10-05] MEDS: ISOSORBIDE MONONITRATE 60 MG TAB.SR.24H (FP) PO SCH (09:33)
[2017-10-05] MEDS: ANASTROZOLE 1 MG TABLET PO SCH (09:33)
[2017-10-05] MEDS: CARVEDILOL 12.5 MG TABLET (FP) PO SCH ×2 (09:33→22:46)
[2017-10-05] MEDS ORDERED: GEMFIBROZIL 600 MG TABLET (FP) PO SCH (10:00)
[2017-10-05] MEDS ORDERED: PATIENT'S OWN MEDICATION (NON-FORMULARY) (Linagliptin/Metformin Hcl [Jentadueto 2.5 Mg-850 PO SCH (10:00)
--- NOTE | 2017-10-05 12:21 | PN ---
Progress Note (short form) - Note Progress Note: Pt seen in er. Chart reviewed Feels better Afebrile Denies abd pain today so far Vital Signs Temp 97.8 F 10/05/17 10:44 Pulse 69 10/05/17 10:44 Resp 20 10/05/17 10:44 BP 138/66 10/05/17 10:44 Pulse Ox 96 10/05/17 07:24 Intake & Output 10/04/17 10/05/17 10/05/17 23:59 11:59 23:59 Weight 158 lb Other: Height 4 ft 11 in Body Mass Index (BMI) 31.8 Weight Measurement Method Est/Stated by Patient Active Medications Acetaminophen (Tylenol -) 1,000 mg PO Q8H PRN PRN Reason: PAIN LEVEL 7 - 10 Amlodipine Besylate (Norvasc -) 5 mg PO DAILY [facility] Last Admin: 10/05/17 09:33 Dose: 5 mg Anastrozole (Arimidex -) 1 mg PO DAILY [facility] Last Admin: 10/05/17 09:33 Dose: 1 mg Aspirin (Asa -) 81 mg PO DAILY [facility] Last Admin: 10/05/17 09:33 Dose: 81 mg Atorvastatin Calcium (Lipitor -) 40 mg PO HS [facility] Carvedilol (Coreg -) 12.5 mg PO BID [facility] Last Admin: 10/05/17 09:33 Dose: 12.5 mg Heparin Sodium (Porcine) (Heparin -) 5,000 unit SQ TID [facility] Last Admin: 10/05/17 05:52 Dose: 5,000 unit Metronidazole (Flagyl 500mg Premixed Ivpb -) 500 mg in 100 mls @ 100 mls/hr IVPB Q8H-IV [facility] Last Admin: 10/05/17 09:33 Dose: 100 mls/hr Sodium Chloride (Normal Saline -) 1,000 mls @ 75 mls/hr IV ASDIR [facility] Last Admin: 10/05/17 04:35 Dose: 75 mls/hr Insulin Aspart (Novolog Vial Sliding Scale -) 1 vial SQ ACHS [facility] PRN Reason: Protocol Insulin Detemir (Levemir Vial) 10 units SQ HS [facility] Isosorbide Mononitrate (Imdur -) 60 mg PO DAILY [facility] Last Admin: 10/05/17 09:33 Dose: 60 mg Levothyroxine Sodium (Synthroid -) 100 mcg PO DAILY@0700 [facility] Last Admin: 10/05/17 06:55 Dose: 100 mcg Pantoprazole Sodium (Protonix -) 40 mg PO DAILY [facility] Last Admin: 10/05/17 09:33 Dose: 40 mg CBC, BMP 10/04/17 16:00 Physical Constitutional: Yes: No Distress. calm Cardiovascular: Yes: Regular Rate and Rhythm Respiratory: Yes: Diminished Gastrointestinal: Yes: Normal Bowel Sounds, Soft, obese/ non tender Edema: Yes CT Scan-- No acute pathology Assessment/Plan Abdominal pain Diabetes HTN Overall better continue present care stool studies pending Monitor diet check esr- added Monitor bgm-- Basal Insulin added check tsh. If stable and better - will consider discharge tomorrow will follow Problem List - Problems (1) Abdominal pain Code(s): R10.9 - UNSPECIFIED ABDOMINAL PAIN Qualifiers: Abdominal location: generalized Qualified Code(s): R10.84 - Generalized abdominal pain (2) Diarrhea Code(s): R19.7 - DIARRHEA, UNSPECIFIED Qualifiers: Diarrhea type: unspecified type Qualified Code(s): R19.7 - Diarrhea, unspecified (3) Breast cancer, left Code(s): C50.912 - MALIGNANT NEOPLASM OF UNSPECIFIED SITE OF LEFT FEMALE BREAST (4) Diabetes Code(s): E11.9 - TYPE 2 DIABETES MELLITUS WITHOUT COMPLICATIONS (5) HTN (hypertension), benign Code(s): I10 - ESSENTIAL (PRIMARY) HYPERTENSION (6) Hypothyroid Code(s): E03.9 - HYPOTHYROIDISM, UNSPECIFIED
[2017-10-05] MEDS: INSULIN SLIDING SCALE (NOVOLOG) 1 VIAL SQ SCH ×3 (13:06→22:46)
[2017-10-05 14:24] LABS: INR 1.32 (0.82-1.09); PROTHROMBIN TIME (PATIENT) 14.9 SEC (9.7-13.0)
[2017-10-05 17:10] LABS: ANION GAP 8 (8-16); BLOOD UREA NITROGEN 20 mg/dL (7-18); CALCIUM 8.5 mg/dL (8.5-10.1); CHLORIDE 111 mmol/L (98-107); CO2 21 mmol/L (21-32); CREATININE 1.2 mg/dL (0.55-1.02); GLUCOSE,RANDOM 229 mg/dL (74-106); MAGNESIUM 1.2 mg/dL (1.8-2.4); SODIUM 140 mmol/L (136-145)
[2017-10-05] MEDS ORDERED: MAGNESIUM 2GM/50ML STERILE WATER IVPB IVPB ONE (20:35)
[2017-10-05] MEDS ORDERED: ATORVASTATIN CA 40 MG TABLET (FP) PO SCH (22:00)
[2017-10-05] MEDS ORDERED: INSULIN (LEVEMIR) 100 UNITS/ML UNITS SQ SCH (22:00)
[2017-10-05] MEDS ORDERED: PT OWN MED DRAWER 7, Y5N ONE (22:45)
--- NOTE | 2017-10-05 23:53 | EKG ---
Test Reason : Blood Pressure : / mmHG Vent. Rate : 099 BPM Atrial Rate : 099 BPM P-R Int : 142 ms QRS Dur : 084 ms QT Int : 350 ms P-R-T Axes : 054 -03 058 degrees QTc Int : 449 ms SINUS RHYTHM NORMAL ECG WHEN COMPARED WITH ECG OF 02-SEP-2014 11:14, NO SIGNIFICANT CHANGE WAS FOUND Confirmed by UNA LAIRD MD ([id number]) on 10/05/2017 11:52:33 PM Referred By: Confirmed By:UNA LAIRD MD
[2017-10-06] MEDS: SODIUM CHLORIDE 1,000 ML IV SCH ×2 (02:58→06:48)
[2017-10-06] MEDS: HEPARIN NA (PORCINE) 5,000 UNITS/ML 1ML VIAL SQ SCH (06:04)
[2017-10-06] MEDS: INSULIN SLIDING SCALE (NOVOLOG) 1 VIAL SQ SCH ×2 (06:48→11:47)
[2017-10-06] MEDS: LEVOTHYROXINE NA 100 MCG TABLET (FP) PO SCH (06:49)
[2017-10-06 07:42] LABS: BASO % 0.5 % (0-2.0); EOS % 3.6 % (0-4.5); HEMATOCRIT 34.5 % (32.4-45.2); HEMOGLOBIN 11.7 GM/dL (10.7-15.3); LYMPH % 16.9 % (8-40); MCH 31.2 pg (25.7-33.7); MCHC 33.8 g/dl (32.0-36.0); MEAN CELL VOLUME 92.4 fl (80-96); MEAN PLT VOLUME 10.1 fl (7.5-11.1); MONO % 9.2 % (3.8-10.2); NEUT % 69.8 % (42.8-82.8); PLATELET COUNT 157 K/MM3 (134-434); RBC 3.73 M/mm3 (3.60-5.2); RDW 14.8 % (11.6-15.6)
[2017-10-06 08:17] LABS: CHLORIDE 114 mmol/L (98-107); POTASSIUM 4.3 mmol/L (3.5-5.1); SODIUM 141 mmol/L (136-145)
[2017-10-06 09:12] LABS: ALBUMIN 3.5 g/dl (3.4-5.0); ALK PHOS 68 U/L (45-117); ANION GAP 6 (8-16); BILIRUBIN,TOTAL 0.6 mg/dL (0.2-1.0); BLOOD UREA NITROGEN 20 mg/dL (7-18); CO2 21 mmol/L (21-32); CREATININE 1.1 mg/dL (0.55-1.02); GLUCOSE,RANDOM 175 mg/dL (74-106); SGOT/AST 17 U/L (15-37); SGPT/ALT 22 U/L (12-78); TOT PROT 6.4 g/dl (6.4-8.2)
[2017-10-06 10:04] VITALS: BP 144/77; PULSE 90; TEMP 98
[2017-10-06] MEDS ORDERED: PT OWN MED DRAWER 7, Y5N ONE (10:06)
[2017-10-06] MEDS: ISOSORBIDE MONONITRATE 60 MG TAB.SR.24H (FP) PO SCH (10:09)
[2017-10-06] MEDS: ASPIRIN 81 MG CHEWABLE TABLETS PO SCH (10:09)
[2017-10-06] MEDS: CARVEDILOL 12.5 MG TABLET (FP) PO SCH (10:09)
[2017-10-06] MEDS: PANTOPRAZOLE 40 MG TABLET (FP) PO SCH (10:09)
[2017-10-06] MEDS: amLODIPine BESYLATE 5 MG TABLET (FP) PO SCH (10:09)
[2017-10-06] MEDS: ANASTROZOLE 1 MG TABLET PO SCH (10:09)
--- NOTE | 2017-10-06 11:08 | DS ---
Physical Examination Vital Signs: Vital Signs Temperature 98 F 10/06/17 09:45 Pulse Rate 90 10/06/17 09:45 Respiratory Rate 22 10/06/17 09:45 Blood Pressure 144/77 10/06/17 09:45 O2 Sat by Pulse Oximetry (%) 98 10/06/17 02:25 Constitutional: Yes: No Distress, Calm Cardiovascular: Yes: Regular Rate and Rhythm Respiratory: Yes: CTA Bilaterally Gastrointestinal: Yes: Normal Bowel Sounds, Soft, Abdomen, Obese. No: Tenderness Edema: No Labs: CBC, BMP 10/06/17 07:00 10/06/17 07:00 Discharge Summary Reason For Visit: AP, NAUSEA AND VOMITING SHORT STAY Current Active Problems Abdominal pain (Acute) Diarrhea (Acute) Nausea & vomiting (Acute) Hospital Course: Admitted for abdominal pain , nausea Pt had CT ABD -- gallstones pt had relief of pain since yesterday no nausea, tolerated PO Had normal BM Labs unremarkable Stool guaic negative possible cause for pain can be gastritis /gallstones Stable for dc home no further antibiotics advised to follow up with PMD and GI Condition: Good - Instructions Referrals: Rajiv Lino MD [Primary Care Provider] - Alan Moraes MD [Staff Physician] - Disposition: HOME - Home Medications Comprehensive Discharge Medication List: Ambulatory Orders Acetaminophen [Tylenol] 1,000 mg PO TID PRN 10/05/17 Amlodipine Besylate [Norvasc -] 5 mg PO DAILY 10/05/17 Anastrozole [Arimidex -] 1 mg PO DAILY 10/05/17 Aspirin 81 mg PO DAILY 10/05/17 Atorvastatin Ca [Lipitor] 40 mg PO HS 10/05/17 Carvedilol [Coreg -] 12.5 mg PO BID 10/05/17 Gemfibrozil 600 mg PO BID 10/05/17 Glipizide 10 mg PO BID 10/05/17 Isosorbide Mononitrate [Isosorbide Mononitrate ER] 60 mg PO DAILY 10/05/17 Levothyroxine [Synthroid -] 100 mcg PO DAILY 10/05/17 Linagliptin/Metformin HCl [Jentadueto 2.5 mg-850 mg Tab] 1 each PO BID 10/05/17 Pantoprazole Sodium 40 mg PO DAILY 10/05/17
== END 2017-10-06 13:36 | disposition home or self-care (01) ==
LOC: JER 14:02 → JERBED 23:00 → J5S 10-05 21:37
PROVIDERS: ADMIT Internal Medicine; ATTEND Internal Medicine
PROC: 3E03329 Introduction of Other Anti-infective into Peripheral Vein, Percutaneous Approach (ICD-10-PCS; principal; 2017-10-04)
PROC: 3E033GC Introduction of Other Therapeutic Substance into Peripheral Vein, Percutaneous Approach (ICD-10-PCS; 2017-10-04)
PROC: 3E013VG Introduction of Insulin into Subcutaneous Tissue, Percutaneous Approach (ICD-10-PCS; 2017-10-04)
PROC: 3E013GC Introduction of Other Therapeutic Substance into Subcutaneous Tissue, Percutaneous Approach (ICD-10-PCS; 2017-10-04)
PROC: 3E0337Z Introduction of Electrolytic and Water Balance Substance into Peripheral Vein, Percutaneous Approach (ICD-10-PCS; 2017-10-04)
DX: R10.84 Generalized abdominal pain (principal); R11.2 Nausea with vomiting, unspecified; R19.7 Diarrhea, unspecified; N17.9 Acute kidney failure, unspecified; I10 Essential (primary) hypertension; I25.10 Atherosclerotic heart disease of native coronary artery without angina pectoris; E78.5 Hyperlipidemia, unspecified; E11.9 Type 2 diabetes mellitus without complications; E03.9 Hypothyroidism, unspecified; K21.9 Gastro-esophageal reflux disease without esophagitis; C50.912 Malignant neoplasm of unspecified site of left female breast; M10.9 Gout, unspecified; K76.0 Fatty (change of) liver, not elsewhere classified; Z79.82 Long term (current) use of aspirin; Z79.84 Long term (current) use of oral hypoglycemic drugs; Z95.5 Presence of coronary angioplasty implant and graft
CPT/HCPCS: 36415; 71045-TC-FY; 74177-TC; 80048; 80053; 81003; 82272; 82550; 82962; 83036; 83605; 83690; 83735; 84100; 84443; 84484; 85025; 85610; 85651; 85730; 87086; 93005; 93010; 96365; 96372; 96375; 99285-25; G0378; J0131; J1644; J7030

== ENCOUNTER 2017-10-20 11:34 | Inpatient (IN) | payer OTHER ==
[2017-10-20] MEDS ORDERED: SODIUM CHLORIDE 1,000 ML IV ONE (12:36)
[2017-10-20] MEDS ORDERED: ACETAMINOPHEN 1000 MG/100 ML VIAL (NON FORMULARY) IVPB ONE (12:36)
[2017-10-20] MEDS ORDERED: ACETAMINOPHEN INJECTION 100 ML IVPB ONE (12:37)
--- NOTE | 2017-10-20 12:47 | PDOC ---
History of Present Illness - General Chief Complaint: SIRS, Suspected/Possible Stated Complaint: PAIN, FEVER, SHAKING Time Seen by Provider: 10/20/17 12:17 - History of Present Illness Initial Comments: 10/20/17 12:40 77 yo F with h/o with gout, DM, HTN, HLD, CAD ( stent placement x 3 ) h/o left breast Ca s/p radiation who p/w L sided abdominal pain. Patient reports acute onset of sharp LUQ abdominal pain radiating to back and left flank, beginning Thursday (10-18-17) and worsening yesterday in severity. Pain improved with erect positioning. Normal appetite. Denies postprandial pain. Also endorses dark stools x 2-3 days, and nausea without vomiting. Pain not improved with OTC NSAIDs. Denies h/o chronic NSAUD use. Recent admission from 10/04-10/06/17 for colitis. Treated with Levaquin, Flagyl. Denies CP, SOB, orthopnea, diaphoresis, PND, leg pain/swelling, palpitations, diarrhea, constipation, BPR, urinary complaints, weakness, lightheadedness, sensory changes. PMHx: as noted above. Denies h/o abdominal surgery. Denies h/o abnormal colonoscopy or endoscopy. Does not f/w with GI. Denies h/o CABG. PMD admits to Dr. Mireles and Kurtis. ROS: as noted above SHx: Denies Etoh, tobacco use, IVDA. Denies recent travel, or sick contacts. Past History - Past Medical History Allergies/Adverse Reactions: Allergies Allergy/AdvReac Type Severity Reaction Status Date / Time No Known Allergies Allergy Verified 10/20/17 12:01 Home Medications: Ambulatory Orders Acetaminophen [Tylenol] 1,000 mg PO TID PRN 10/05/17 Amlodipine Besylate [Norvasc -] 5 mg PO DAILY 10/05/17 Anastrozole [Arimidex -] 1 mg PO DAILY 10/05/17 Aspirin 81 mg PO DAILY 10/05/17 Atorvastatin Ca [Lipitor] 40 mg PO DAILY 10/05/17 Carvedilol [Coreg -] 12.5 mg PO BID 10/05/17 Gemfibrozil 600 mg PO BID 10/05/17 Glipizide 10 mg PO BID 10/05/17 Isosorbide Mononitrate [Isosorbide Mononitrate ER] 60 mg PO DAILY 10/05/17 Levothyroxine [Synthroid -] 100 mcg PO DAILY 10/05/17 Linagliptin/Metformin HCl [Jentadueto 2.5 mg-850 mg Tab] 1 each PO BID 10/05/17 Pantoprazole Sodium 40 mg PO DAILY 10/05/17 Anemia: No Asthma: No Cancer: Yes (BREAST LEFT) Cardiac Disorders: Yes (STENTS X 4-2010) CVA: No COPD: No CHF: No DVT: No Dementia: No Diabetes: Yes GI Disorders: Yes (GASTRITIS.) Disorders: No HTN: Yes Hypercholesterolemia: Yes Liver Disease: No Seizures: No Thyroid Disease: Yes (HYPOTHYROIDISM) - Surgical History Abdominal Surgery: No Appendectomy: No Cardiac Surgery: Yes (CARDIAC STENTS X 4, LAST 2010) Cholecystectomy: No Lung Surgery: No Neurologic Surgery: No Orthopedic Surgery: No - Immunization History Immunization Up to Date: Yes - Suicide/Smoking/Psychosocial Hx Smoking Status: No Smoking History: Never smoked Number of Cigarettes Smoked Daily: 0 Hx Alcohol Use: No Drug/Substance Use Hx: No Substance Use Type: None Hx Substance Use Treatment: No Review of Systems - Review of Systems Comments:: 10/20/17 12:53 GENERAL/CONSTITUTIONAL: No fever or chills. No weakness. HEAD, EYES, EARS, NOSE AND THROAT: No change in vision. No ear pain or discharge. No sore throat. CARDIOVASCULAR: No chest pain or shortness of breath RESPIRATORY: No cough, wheezing, or hemoptysis. GASTROINTESTINAL: + Abdominal pain and nausea. No vomiting, diarrhea or constipation. GENITOURINARY: No dysuria, frequency, or change in urination. MUSCULOSKELETAL: No joint or muscle swelling or pain. No neck or back pain. SKIN: No rash NEUROLOGIC: No headache, vertigo, loss of consciousness, or change in strength/ sensation. ENDOCRINE: No increased thirst. No abnormal weight change HEMATOLOGIC/LYMPHATIC: No anemia, easy bleeding, or history of blood clots. ALLERGIC/IMMUNOLOGIC: No hives or skin allergy. *Physical Exam - Vital Signs Last Vital Signs Temp Pulse Resp BP Pulse Ox 101.9 F H 109 H 24 155/106 96 10/20/17 12:29 10/20/17 12:02 10/20/17 12:29 10/20/17 12:02 10/20/17 12:29 - Physical Exam Comments: 10/20/17 12:53 GENERAL: Awake, alert, and fully oriented, in no acute distress HEAD: No signs of trauma, normocephalic, atraumatic EYES: PERRLA, EOMI, sclera anicteric, conjunctiva clear ENT: Auricles normal inspection, hearing grossly normal, nares patent, oropharynx clear without exudates. Moist mucosa NECK: Normal ROM, supple, no lymphadenopathy, JVD, or masses LUNGS: No distress, speaks full sentences, clear to auscultation bilaterally HEART: Regular rate and rhythm, normal S1 and S2, no murmurs, rubs or gallops, peripheral pulses normal and equal bilaterally. ABDOMEN: + LUQ predominant and diffuse ttp. Soft, normoactive bowel sounds. No guarding, no rebound. No masses. Neg CVA ttp. Abdomen protruberant. EXTREMITIES : Normal inspection, Normal range of motion, no edema. No clubbing or cyanosis. NEUROLOGICAL: Cranial nerves II through XII grossly intact. Normal speech, normal gait, no focal sensorimotor deficits SKIN: Warm, Dry, normal turgor, no rashes or lesions noted ED Treatment Course - LABORATORY CBC & Chemistry Diagram: 10/20/17 12:50 10/20/17 12:57 - RADIOLOGY Radiograph Interpretation: 10/20/17 17:17 EXAM#: TYPE/EXAM: RESULT: [id number] US/ABDOMEN US - LIMITED Abdomen ultrasound Clinical information given: abdominal pain There is diffuse fatty infiltration of the liver. The liver appears borderline in overall size. minimal subtle hepatic surface irregularity is noted. No discrete biliary calculus is seen. The gallbladder appears unremarkable in size and wall thickness No pericholecystic fluid is identified. The common bile duct diameter appears borderline measuring 0.7 cm. No gross intraductal calculus is seen. The spleen, kidneys and partially visualized pancreas demonstrate no sonographic abnormality. IMPRESSION: Diffuse hepatic steatosis is noted. Minimal subtle hepatic surface irregularity is noted as on CT studies of 10/20/2017 and 2017 which could be on the basis of cirrhosis. Clinical/laboratory correlation is suggested. The current ultrasound exam demonstrates no definite cholelithiasis. However, an apparent 3 mm gallbladder calculus was visualized on CT. No sonographic evidence of acute cholecystitis. EXAM#: TYPE/EXAM: RESULT: [id number] CT/ABDOMEN PELVIS CT WITH CONTR Abdomen and pelvis CT (with intravenous contrast) Clinical information given: abdominal pain Multiplanar imaging was performed following the intravenous administration of nonionic contrast. As requested enteric contrast was not administered. No evidence of pneumoperitoneum, abscess, free intraperitoneal fluid or bowel obstruction. Cholelithiasis is noted without definite CT evidence of acute cholecystitis. No biliary tract dilatation is identified Minimal to mild surface irregularity is seen along the left hepatic lobe ventrally which may be on the basis of cirrhosis. There is probable diffuse fatty infiltration of the liver. The spleen appears unremarkable in size. The pancreas, adrenal glands and kidneys demonstrate no discrete CT abnormality. Small stable right renal cortical cyst. A 2 cm diverticulum is noted along the medial aspect of the second portion of the duodenal sweep. The appendix appears unremarkable. Sigmoid diverticulosis is seen without CT evidence of acute diverticulitis. No gross small bowel pathology is identified. There is no aortic aneurysm. Status post hysterectomy. No definite pelvic abnormality is noted. IMPRESSION: No definite interval change is identified in comparison to a prior CT study of 10/04. Colonic diverticulosis. Cholelithiasis. Possible hepatic cirrhosis. Probable diffuse hepatic steatosis. If clinically indicated correlate with sonography. 2 cm duodenal diverticulum. Status post hysterectomy. Reported By: Clarence Agudelo MD 10/20/171626 Doroteo Martinez Technologist: Arvin Florian Transcribed Date/Time: 10/20/171626 Consulting Systems Engineer: Clarence Agudelo Medical Decision Making - Medical Decision Making 10/20/17 13:31 77 yo F with h/o with gout, DM, HTN, HLD, CAD ( stent placement x 3 ) h/o left breast Ca s/p radiation who p/w L sided abdominal pain radiating to left sided back. 2/4 SIRS criteria; Rectal temp 101.9, HR 109. A&Ox3. + LUQ predominant and diffuse ttp. Will consider colitis, biliary disease, pancreatitis, gastritis , nephrolithiasis, pyelonephritis, AAA. ED Course: Sepsis Protocol, NS 1 L, Tylenol 1000 mg WBC: 3.8 AST/ALT: 595/350 Lipase: 575 Alk Phosph: 124 Bili: 1.8 LFT's and Lipase elevated from previous admission. 10/20/17 17:16 CT AP: No definite interval change is identified in comparison to a prior CT study of 10/04/2017. Colonic diverticulosis. Cholelithiasis. Possible hepatic cirrhosis. Probable diffuse hepatic steatosis. If clinically indicated correlate with sonography. 2 cm duodenal diverticulum. Status post hysterectomy. RUQ U/S: Diffuse hepatic steatosis is noted. Minimal subtle hepatic surface irregularity is noted as on CT studies of 10/20/2017 and 10/04/2017 which could be on the basis of cirrhosis. Clinical/laboratory correlation is suggested. The current ultrasound exam demonstrates no definite cholelithiasis. However, an apparent 3 mm gallbladder calculus was visualized on CT. No sonographic evidence of acute cholecystitis. 10/20/17 18:20 Patient to be admitted to Dr. Saucedo/inpatient Med/Surg. *DC/Admit/Observation/Transfer Diagnosis at time of Disposition: Sepsis Qualifiers: Sepsis type: sepsis due to unspecified organism Qualified Code(s): A41.9 - Sepsis, unspecified organism Abdominal pain Qualifiers: Abdominal location: generalized Qualified Code(s): R10.84 - Generalized abdominal pain - Discharge Dispostion Decision to Admit order: Yes - Referrals Referrals: Rajiv Lino MD [Primary Care Provider] - - Patient Instructions - Post Discharge Activity
[2017-10-20 12:58] LABS: BASO % 0.1 % (0-2.0); EOS % 0.8 % (0-4.5); HEMATOCRIT 37.5 % (32.4-45.2); HEMOGLOBIN 12.7 GM/dL (10.7-15.3); LYMPH % 6.4 % (8-40); MCH 31.2 pg (25.7-33.7); MCHC 33.8 g/dl (32.0-36.0); MEAN CELL VOLUME 92.4 fl (80-96); MEAN PLT VOLUME 10.1 fl (7.5-11.1); MONO % 1.8 % (3.8-10.2); NEUT % 90.9 % (42.8-82.8); PLATELET COUNT 159 K/MM3 (134-434); RBC 4.06 M/mm3 (3.60-5.2); RDW 15.1 % (11.6-15.6); WHITE BLOOD COUNT 3.8 K/mm3 (4.0-10.0)
[2017-10-20 13:13] LABS: VENOUS PC02 35.9 mmHg (38-52); VENOUS PH 7.4 (7.32-7.42); VENOUS PO2 37.5 mmHg (28-48)
[2017-10-20 13:17] LABS: URINE APPEARANCE CLEAR; URINE BILIRUBIN NEGATIVE (<2.0 mg/dL); URINE BLOOD NEGATIVE (NEGATIVE); URINE COLOR YELLOW; URINE GLUCOSE (UA) 3+ (NEGATIVE); URINE KETONE NEGATIVE (NEGATIVE); URINE LEUK ESTERASE NEGATIVE (NEGATIVE); URINE NITRITE NEGATIVE (NEGATIVE)
[2017-10-20 13:18] LABS: URINE PROTEIN 1+ (NEGATIVE)
[2017-10-20 13:20] LABS: INR 1.11 (0.82-1.09); PROTHROMBIN TIME (PATIENT) 12.5 SEC (9.7-13.0)
[2017-10-20 13:22] LABS: EPI CELLS RARE /HPF (FEW); URINE MUCUS RARE
[2017-10-20 13:23] LABS: ACTIVATED PTT 23.2 SECONDS (26.9-34.4)
[2017-10-20 13:32] LABS: ALBUMIN 3.5 g/dl (3.4-5.0); ANION GAP 10 (8-16); BILIRUBIN,TOTAL 1.8 mg/dL (0.2-1.0); BLOOD UREA NITROGEN 28 mg/dL (7-18); CALCIUM 9.2 mg/dL (8.5-10.1); CHLORIDE 106 mmol/L (98-107); CO2 21 mmol/L (21-32); CREATININE 1.3 mg/dL (0.55-1.02); GLUCOSE,RANDOM 178 mg/dL (74-106); POTASSIUM 4.7 mmol/L (3.5-5.1); SGPT/ALT 350 U/L (12-78); SODIUM 137 mmol/L (136-145); TOT PROT 6.8 g/dl (6.4-8.2)
[2017-10-20 13:33] LABS: ALK PHOS 124 U/L (45-117)
[2017-10-20 13:34] LABS: SGOT/AST 595 U/L (15-37)
--- NOTE | 2017-10-20 14:26 | PDOC ---
Attending Attestation - Resident Resident Name: Doroteo Martinez - ED Attending Attestation I have performed the following: I have examined & evaluated the patient, The case was reviewed & discussed with the resident, I agree w/resident's findings & plan - HPI HPI: 10/20/17 14:22 77-year-old female with history of multiple medical problems including recent admission where she was diagnosed with cholelithiasis presents now with worsening epigastric/left upper quadrant pain since last night, associated with chills and nausea but no vomiting/diarrhea/constipation. The pain as being constant, worsening in severity, so she presents for evaluation. Pain began after eating dinner, but has no history of recurring postprandial abdominal pain. - Physicial Exam PE: 10/20/17 14:23 Febrile rectally, tachycardia, blood pressure stable No jaundice or pallor Abdomen is soft/nondistended. Slight discomfort to palpation in the epigastric region without guarding or rebound, no CVA tenderness No right upper quadrant tenderness or guarding - Medical Decision Making 10/20/17 14:24 77-year-old female presents with worsening epigastric pain since last night. Labs notable for elevated LFTs, lipase pending white count 3.8 with left shift Urinalysis clear Question cholelithiasis/cholecystitis, question pancreatitis, question gastritis /PUD. Check ultrasound of the right upper quadrant, repeat CT of the abdomen and pelvis IV fluids, antipyretics, antibiotics Admission 10/20/17 15:57 lipase 575. imaging for possible gallstone pancreatitis. proceed with admission, GI/surg consults Heart Score/ECG Review #1 ECG reviewed & interpreted by me at: 12:34 General ECG Interpretation: Sinus Rhythm, Normal Rate (103), Normal Intervals ( qtc 432), No acute ischemic changes
[2017-10-20 14:38] LABS: LIPASE 575 U/L (73-393)
[2017-10-20] MEDS ORDERED: PIPERACILLIN/TAZOB 4.5 GM 4.5 GM in DEXTROSE 5%-WATER 100 ML IVPB ONE (16:34)
--- NOTE | 2017-10-20 17:58 | EKG ---
Test Reason : Blood Pressure : / mmHG Vent. Rate : 103 BPM Atrial Rate : 103 BPM P-R Int : 144 ms QRS Dur : 084 ms QT Int : 330 ms P-R-T Axes : 051 -09 053 degrees QTc Int : 432 ms SINUS TACHYCARDIA OTHERWISE NORMAL ECG WHEN COMPARED WITH ECG OF 04-OCT-2017 16:25, NO SIGNIFICANT CHANGE WAS FOUND Confirmed by MD HOMAR, MARQUIS ([id number]) on 10/20/2017 5:57:58 PM Referred By: Confirmed By:MARQUIS GRAF MD
--- NOTE | 2017-10-20 19:02 | HP ---
CHIEF COMPLAINT: LUQ pain under breast and around to left upper back PCP: Dr. Lino/Dr. Hull HISTORY OF PRESENT ILLNESS: 77 year-old female with a PMH significant for HTN, HLD, CAD s/p stents, gout, left breast cancer s/p radiation, nephrolithiasis, and rhabdomy. Patient presented to the ED today with a complaint of left-sided pain focused under the left breast and radiating under axilla to left upper back. On this admission the patient states to this provider the pain started Thursday night and continued unabated through the night accompanied by shaking chills. The pain was focused under the left breast and radiated under the left axilla to left upper back/ flank. The pain resolved this morning without recurrence. Patient denies nausea , vomiting, diarrhea. Denies SOB, VILLAREAL, PND, lower extremity swelling. Denies dysuria, frequency, urgency. No bleeding episodes of any type. Recently admitted 10/04-10/06/17 for colitis treated with levaquin and flagyl. ER course was notable for: (1) T101.9, p 109, WBC 3.8k (2) UA negative (3) CXR: congestive changes, no acute infiltrate (4) CTAP: cholelithiasis without definite cholecystitis, no biliary tract dilitation; possible cirrhosis, probable diffuse fatty liver; diverticulosis without diverticulitis (5) Lactic acid 1.7-->2.1 Recent Travel: No PAST MEDICAL HISTORY: Hypertension Hyperlipidemia Coronary artery disease Gout Left breast cancer PAST SURGICAL HISTORY: Hysterectomy due to fibroids age 51 Cardiac stents, most recent 2010 Social History: Smoking: no Alcohol: no Drugs: no Family History: Allergies No Known Allergies Allergy (Verified 10/20/17 12:01) HOME MEDICATIONS: Home Medications Medication Instructions Recorded Acetaminophen [Tylenol] 1,000 mg PO TID PRN 10/05/17 Amlodipine Besylate [Norvasc -] 5 mg PO DAILY 10/05/17 Anastrozole [Arimidex -] 1 mg PO DAILY 10/05/17 Aspirin 81 mg PO DAILY 10/05/17 Atorvastatin Ca [Lipitor] 40 mg PO DAILY 10/05/17 Carvedilol [Coreg -] 12.5 mg PO BID 10/05/17 Gemfibrozil 600 mg PO BID 10/05/17 Glipizide 10 mg PO BID 10/05/17 Isosorbide Mononitrate [Isosorbide 60 mg PO DAILY 10/05/17 Mononitrate ER] Levothyroxine [Synthroid -] 100 mcg PO DAILY 10/05/17 Linagliptin/Metformin HCl 1 each PO BID 10/05/17 [Jentadueto 2.5 mg-850 mg Tab] Pantoprazole Sodium 40 mg PO DAILY 10/05/17 REVIEW OF SYSTEMS CONSTITUTIONAL: +chills Absent: fever, diaphoresis, generalized weakness, malaise, loss of appetite, weight change HEENT: Absent: rhinorrhea, nasal congestion, throat pain, throat swelling, difficulty swallowing, mouth swelling, ear pain, eye pain, visual changes CARDIOVASCULAR: +pain under left breast radiating to left upper back/flank Absent: chest pain, syncope, palpitations, irregular heart rate, lightheadedness , peripheral edema RESPIRATORY: Absent: cough, shortness of breath, dyspnea with exertion, orthopnea, wheezing, stridor, hemoptysis GASTROINTESTINAL: Absent: abdominal pain, abdominal distension, nausea, vomiting, diarrhea, constipation, melena, hematochezia GENITOURINARY: Absent: dysuria, frequency, urgency, hesitancy, hematuria, flank pain, genital pain MUSCULOSKELETAL: Absent: myalgia, arthralgia, joint swelling, back pain, neck pain SKIN: Absent: rash, itching, pallor HEMATOLOGIC/IMMUNOLOGIC: Absent: easy bleeding, easy bruising, lymphadenopathy, frequent infections ENDOCRINE: Absent: unexplained weight gain, unexplained weight loss, heat intolerance, cold intolerance NEUROLOGIC: Absent: headache, focal weakness or paresthesias, dizziness, unsteady gait, seizure, mental status changes, bladder or bowel incontinence PSYCHIATRIC: Absent: anxiety, depression, suicidal or homicidal ideation, hallucinations. PHYSICAL EXAMINATION Vital Signs - 24 hr 10/20/17 10/20/17 10/20/17 12:02 12:29 13:13 Temperature 99.7 F H 101.9 F H 101.9 F H Pulse Rate 109 H Respiratory 20 24 Rate Blood Pressure 155/106 O2 Sat by Pulse 97 96 Oximetry (%) 10/20/17 13:39 Temperature Pulse Rate Respiratory Rate Blood Pressure O2 Sat by Pulse 98 Oximetry (%) GENERAL/NEURO: Awake, alert, and fully oriented, in no acute distress. HEAD: Normal with no signs of trauma. EYES: Pupils equal, round and reactive to light, extraocular movements intact, sclera anicteric, conjunctiva clear. No lid lag. EARS, NOSE, THROAT: Ears normal, nares patent, oropharynx clear without exudates. Moist mucous membranes. NECK: Normal range of motion, supple without lymphadenopathy, JVD, or masses. LUNGS: Breath sounds equal, clear to auscultation bilaterally. No wheezes, and no crackles. No accessory muscle use. HEART: Regular rate and rhythm, normal S1 and S2 ABDOMEN: Soft, mild RUQ and RLQ tenderness, not distended, normoactive bowel sounds, no guarding, no rebound MUSCULOSKELETAL: Normal range of motion at all joints. No bony deformities or tenderness. No CVA tenderness. UPPER EXTREMITIES: 2+ pulses, warm, well-perfused. No cyanosis. No clubbing. No peripheral edema. LOWER EXTREMITIES: 2+ pulses, warm, well-perfused. No calf tenderness. No peripheral edema. Laboratory Results - last 24 hr 10/20/17 10/20/17 10/20/17 12:50 12:57 12:57 WBC 3.8 L RBC 4.06 Hgb 12.7 Hct 37.5 MCV 92.4 MCH 31.2 MCHC 33.8 RDW 15.1 Plt Count 159 MPV 10.1 Absolute Neuts (auto) 3.4 Neutrophils % 90.9 H Lymphocytes % 6.4 L D Monocytes % 1.8 L D Eosinophils % 0.8 Basophils % 0.1 Nucleated RBC % 0 PT with INR 12.50 INR 1.11 PTT (Actin FS) 23.2 L VBG pH POC VBG pCO2 POC VBG pO2 Mixed VBG HCO3 Sodium 137 Potassium 4.7 Chloride 106 Carbon Dioxide 21 Anion Gap 10 BUN 28 H Creatinine 1.3 H Creat Clearance w eGFR 39.93 Random Glucose 178 H Lactic Acid Calcium 9.2 Total Bilirubin 1.8 H D AST 595 H ALT 350 H Alkaline Phosphatase 124 H Troponin I Total Protein 6.8 Albumin 3.5 Lipase Urine Color Urine Appearance Urine pH Ur Specific [place] Urine Protein Urine Glucose (UA) Urine Ketones Urine Blood Urine Nitrite Urine Bilirubin Urine Urobilinogen Ur Leukocyte Esterase Urine WBC (Auto) Urine RBC (Auto) Ur Epithelial Cells Urine Mucus 10/20/17 10/20/17 10/20/17 12:57 12:57 13:00 WBC RBC Hgb Hct MCV MCH MCHC RDW Plt Count MPV Absolute Neuts (auto) Neutrophils % Lymphocytes % Monocytes % Eosinophils % Basophils % Nucleated RBC % PT with INR INR PTT (Actin FS) VBG pH POC VBG pCO2 POC VBG pO2 Mixed VBG HCO3 Sodium Potassium Chloride Carbon Dioxide Anion Gap BUN Creatinine Creat Clearance w eGFR Random Glucose Lactic Acid 1.7 Calcium Total Bilirubin AST ALT Alkaline Phosphatase Troponin I < 0.02 Total Protein Albumin Lipase 575 H Urine Color Yellow Urine Appearance Clear Urine pH 6.0 Ur Specific [place] 1.014 Urine Protein 1+ H Urine Glucose (UA) 3+ H D Urine Ketones Negative Urine Blood Negative Urine Nitrite Negative Urine Bilirubin Negative Urine Urobilinogen 2.0 H Ur Leukocyte Esterase Negative Urine WBC (Auto) <1 Urine RBC (Auto) <1 Ur Epithelial Cells Rare Urine Mucus Rare ASSESSMENT/PLAN 77 year-old female with a PMH significant for HTN, HLD, CAD s/p stents, gout, left breast cancer s/p radiation, nephrolithiasis, and rhabdomyolysis. Admitted for sepsis of uncertain etiology, LUQ pain, hyperbilirubinema, transaminitis. Sepsis of uncertain etiology --febrile to 101.9, p 109, WBC 3.8k on admission --received 2L bolus, continue hourly rate --start ceftriaxone, flagyl, azithro --hepatitis panel pending Pulmonary congestion --seen on CXR --no h/o heart failure, most recent echo in EMR from 2012 --echo ordered --BNP ordered Lactic acidosis --cautious IV fluids given pulmonary congestion LUQ pain Hyperbilirubinemia Transaminitis --CTAP: cholelithiasis without definite cholecystitis, no biliary tract dilitation; possible cirrhosis, probable diffuse fatty liver; diverticulosis without diverticulitis; HIDA in am --consider musculoskeletal component; similar presentation in 2013 with elevated LFTs, found to have rhabdo; CPK pending --consider congestive hepatopathy; echo pending --consider liver toxicity from statin +/- gemfibrozil; hold these meds --GI following Left breast cancer --continue arimidex FEN Fluids: NS@50mL/hr Electrolytes: replete as indicated Nutrition: NPO DVT prophylaxis: subq heparin, oob, ambulation Physical therapy Dispo: continues to require inpatient care. Full code. Visit type - Emergency Visit Emergency Visit: Yes ED Registration Date: 10/20/17 Care time: The patient presented to the Emergency Department on the above date and was hospitalized for further evaluation of their emergent condition. - New Patient This patient is new to me today: Yes Date on this admission: 10/21/17 - Critical Care Critical Care patient: No Hospitalist Screening - Colonoscopy Questionnaire Colonoscopy Questionnaire: Colonoscopy Questionnaire - Patient: 50 - 75 years old and never had a screening colonoscopy: Unknown History of colon or rectal polyps, or CA: Unknown History of IBD, Crohn's disease or UC: Unknown History of abdominal radiation therapy as a child: Unknown - Relative: 1 with colon or rectal CA, or polyps at age 60 or younger: Unknown Colon or rectal CA diagnosed at age 45 or younger: Unknown Multiple relatives with colon or rectal CA: Unknown - Outcome: Screening Result: Negative Screen
[2017-10-20] MEDS ORDERED: SODIUM CHLORIDE 1,000 ML IV STA (19:18)
--- NOTE | 2017-10-20 20:01 | CON.GI ---
Consult Consult Specialty:: GI Referred by:: Dr Lino/Shady HORN - History of Present Illness History of Present Illness: 77 y/ female with PMH of DM and gall bladder stones was admitted with epigastric pain,nausea and markedly elevated liver enzymes associated with top normal CBD by ultrasound and normal intrahepatic ducts. - Past Medical History Cardio/Vascular: Yes: CAD, HTN, Hyperlipdemia Pulmonary: Yes: Other (never studied for sleep apnea; denies excessive snoring or excessive fatigue/sleep during the day). No: COPD Gastrointestinal: Yes: GERD Musculoskeletal: Yes: Other (?gout of the left foot) Rheumatology: Yes: Gout Endocrine: Yes: Diabetes Mellitus, Hypothyroidism - Past Surgical History Past Surgical History: Yes: Colonoscopy (4 years ago), Upper Endoscopy (gerd. 3 yrs ago) - Alcohol/Substance Use Hx Alcohol Use: No - Smoking History Smoking history: Never smoked Aproximately how many cigarettes per day: 0 - Social History Usual Living Arrangement: With Spouse Home Medications - Allergies Allergies/Adverse Reactions: Allergies Allergy/AdvReac Type Severity Reaction Status Date / Time No Known Allergies Allergy Verified 10/20/17 12:01 - Home Medications Home Medications: Ambulatory Orders Acetaminophen [Tylenol] 1,000 mg PO TID PRN 10/05/17 Amlodipine Besylate [Norvasc -] 5 mg PO DAILY 10/05/17 Anastrozole [Arimidex -] 1 mg PO DAILY 10/05/17 Aspirin 81 mg PO DAILY 10/05/17 Atorvastatin Ca [Lipitor] 40 mg PO DAILY 10/05/17 Carvedilol [Coreg -] 12.5 mg PO BID 10/05/17 Gemfibrozil 600 mg PO BID 10/05/17 Glipizide 10 mg PO BID 10/05/17 Isosorbide Mononitrate [Isosorbide Mononitrate ER] 60 mg PO DAILY 10/05/17 Levothyroxine [Synthroid -] 100 mcg PO DAILY 10/05/17 Linagliptin/Metformin HCl [Jentadueto 2.5 mg-850 mg Tab] 1 each PO BID 10/05/17 Pantoprazole Sodium 40 mg PO DAILY 10/05/17 Family Disease History - Family Disease History Family Disease History: CA: Daughter (crc) Review of Systems - Review of Systems Constitutional: reports: Fever Eyes: reports: Blind Spots HENT: reports: Difficult Swallowing Neck: denies: Decreased ROM Cardiovascular: denies: Chest Pain Gastrointestinal: reports: Abdominal Pain, Bloating. denies: Constipation, Diarrhea, Dysphagia, Indigestion, Melena, Rectal Bleeding Physical Exam-GI Vital Signs: Vital Signs Temperature 99.2 F 10/20/17 17:00 Pulse Rate 81 10/20/17 17:00 Respiratory Rate 18 10/20/17 17:00 Blood Pressure 146/91 10/20/17 17:00 O2 Sat by Pulse Oximetry (%) 98 10/20/17 13:39 Constitutional: Yes: Obese Eyes: Yes: Conjunctiva Clear HENT: Yes: Atraumatic Neck: Yes: Supple. No: Lymphadenopathy Respiratory: Yes: CTA Bilaterally Gastrointestinal Inspection: No: Distention ...Palpate: Yes: Soft. No: Firm/Rigid, Guarding, Hepatomegaly, Mass, Splenomegaly, Tenderness, Tenderness, Epigastium Labs: CBC, BMP 10/20/17 12:50 10/20/17 12:57 INR, PTT INR 1.11 (0.82-1.09) 10/20/17 12:57 Problem List - Problems (1) Elevated liver enzymes Assessment/Plan: doubt secondary to CBD obstruction most likely secondary to drug toxicity and dehydration R> d/w with Miss Caruso this [id number] will hold of lipitor and gemfibrozil and may restart once LFTS less than twice normal and a lower dose and frequency IV hydration serial lfts further w/u as an outpatient HIDa scan in am to r/o cholecystitis Code(s): R74.8 - ABNORMAL LEVELS OF OTHER SERUM ENZYMES
[2017-10-20] MEDS: CEFTRIAXONE 1 GM in DEXTROSE 5%-WATER - 50 ML IVPB SCH (21:25)
[2017-10-20] MEDS ORDERED: SODIUM CHLORIDE 1,000 ML IV SCH (22:00)
[2017-10-20] MEDS: CARVEDILOL 12.5 MG TABLET (FP) PO SCH (22:22)
[2017-10-20] MEDS ORDERED: CARVEDILOL 12.5 MG TABLET (FP) ONE (22:31)
[2017-10-20] MEDS ORDERED: CEFTRIAXONE 1 GM/50 ML BAG ONE (22:31)
[2017-10-20] MEDS: HEPARIN NA (PORCINE) 5,000 UNITS/ML 1ML VIAL SQ SCH (22:40)
[2017-10-20] MEDS: INSULIN SLIDING SCALE (NOVOLOG) 1 VIAL SQ SCH (23:38)
[2017-10-20] MEDS ORDERED: HEPARIN NA (PORCINE) 5,000 UNITS/ML 1ML VIAL ONE (23:41)
[2017-10-21] MEDS: SODIUM CHLORIDE 1,000 ML IV SCH ×2 (00:51→05:15)
[2017-10-21 05:09] VITALS: BMI 29.0
[2017-10-21] MEDS: HEPARIN NA (PORCINE) 5,000 UNITS/ML 1ML VIAL SQ SCH ×2 (06:44→21:30)
[2017-10-21] MEDS: LEVOTHYROXINE NA 100 MCG TABLET (FP) PO SCH (06:45)
[2017-10-21] MEDS: INSULIN SLIDING SCALE (NOVOLOG) 1 VIAL SQ SCH ×4 (06:45→21:31)
[2017-10-21] MEDS ORDERED: DEXTROSE 50%-WATER 25 GM/50 ML DISP.SYRIN IVPUSH ONE (06:50)
[2017-10-21] MEDS ORDERED: DEXTROSE 50%-WATER 25 GM/50 ML DISP.SYRIN ONE (06:54)
[2017-10-21 08:14] LABS: BASO % 0.3 % (0-2.0); EOS % 1.2 % (0-4.5); HEMATOCRIT 29.4 % (32.4-45.2); HEMOGLOBIN 10.2 GM/dL (10.7-15.3); LYMPH % 4.8 % (8-40); MCH 31.7 pg (25.7-33.7); MCHC 34.8 g/dl (32.0-36.0); MEAN CELL VOLUME 91.2 fl (80-96); MEAN PLT VOLUME 10.1 fl (7.5-11.1); MONO % 7.7 % (3.8-10.2); PLATELET COUNT 136 K/MM3 (134-434); RBC 3.22 M/mm3 (3.60-5.2); RDW 15.4 % (11.6-15.6); WHITE BLOOD COUNT 5.1 K/mm3 (4.0-10.0)
[2017-10-21 08:34] LABS: N-TERMINAL BNP 562.18 pg/ml (5-450)
[2017-10-21 08:35] LABS: ALBUMIN 2.8 g/dl (3.4-5.0); ANION GAP 9 (8-16); BILIRUBIN,DIRECT 1.8 mg/dL (0.0-0.2); BLOOD UREA NITROGEN 19 mg/dL (7-18); CALCIUM 8.1 mg/dL (8.5-10.1); CHLORIDE 112 mmol/L (98-107); CO2 20 mmol/L (21-32); GLUCOSE,RANDOM 174 mg/dL (74-106); MAGNESIUM 1.1 mg/dL (1.8-2.4); PHOSPHOROUS 2.4 mg/dL (2.5-4.9); POTASSIUM 4.1 mmol/L (3.5-5.1); SODIUM 141 mmol/L (136-145)
[2017-10-21 08:38] LABS: ALK PHOS 104 U/L (45-117); BILIRUBIN,TOTAL 2.3 mg/dL (0.2-1.0); CREATININE 1.2 mg/dL (0.55-1.02); TOT PROT 5.7 g/dl (6.4-8.2)
[2017-10-21 08:41] LABS: INR 1.39 (0.82-1.09); PROTHROMBIN TIME (PATIENT) 15.7 SEC (9.7-13.0)
[2017-10-21 08:43] LABS: ACTIVATED PTT 30.9 SECONDS (26.9-34.4); SGOT/AST 491 U/L (15-37); SGPT/ALT 524 U/L (12-78)
[2017-10-21 09:38] LABS: ERYTHROCYTE SEDIMENTATION RATE 24 mm/hr (0-30)
[2017-10-21] MEDS ORDERED: ASPIRIN 81 MG CHEWABLE TABLETS PO SCH (10:00)
[2017-10-21] MEDS ORDERED: AZITHROMYCIN IVPB 500 MG in DEXTROSE 5%-WATER - 250 ML IVPB SCH (10:00)
[2017-10-21] MEDS ORDERED: cefTRIAXone SODIUM 1 GM VIAL ONE (10:11)
[2017-10-21] MEDS ORDERED: PT OWN MED DRAWER 7, Y5N ONE ×2 (10:11→13:09)
[2017-10-21] MEDS ORDERED: DEXTROSE 5%-WATER - 50 ML IVPB ONE (10:12)
--- NOTE | 2017-10-21 12:13 | PN ---
Progress Note, Physician Chief Complaint: s/p Chadwick feels well hungry - Current Medication List Current Medications: Active Medications Amlodipine Besylate (Norvasc -) 5 mg PO DAILY [facility] Anastrozole (Arimidex -) 1 mg PO DAILY [facility] Carvedilol (Coreg -) 12.5 mg PO BID [facility] Last Admin: 10/20/17 22:22 Dose: 12.5 mg Heparin Sodium (Porcine) (Heparin -) 5,000 unit SQ TID [facility] Last Admin: 10/21/17 06:44 Dose: 5,000 unit Ceftriaxone Sodium 1 gm/ (Dextrose) 50 mls @ 100 mls/hr IVPB DAILY [facility]; Protocol Last Admin: 10/20/17 21:25 Dose: 100 mls/hr Metronidazole (Flagyl 500mg Premixed Ivpb -) 500 mg in 100 mls @ 100 mls/hr IVPB Q8H-IV [facility] Last Admin: 10/21/17 03:30 Dose: 100 mls/hr Azithromycin 500 mg/ Dextrose 250 mls @ 250 mls/hr IVPB DAILY [facility] Stop: 10/25/17 10:59 Sodium Chloride (Normal Saline -) 1,000 mls @ 50 mls/hr IV ASDIR [facility] Last Admin: 10/21/17 05:15 Dose: 50 mls/hr Insulin Aspart (Novolog Vial Sliding Scale -) 1 vial SQ ACHS [facility]; Protocol Last Admin: 10/21/17 06:45 Dose: Not Given Isosorbide Mononitrate (Imdur -) 60 mg PO DAILY [facility] Levothyroxine Sodium (Synthroid -) 100 mcg PO DAILY@0700 [facility] Last Admin: 10/21/17 06:45 Dose: 100 mcg Pantoprazole Sodium (Protonix -) 40 mg PO DAILY [facility] - Objective Vital Signs: Vital Signs Temperature 99.1 F 10/21/17 08:00 Pulse Rate 65 10/21/17 08:00 Respiratory Rate 22 10/21/17 08:00 Blood Pressure 128/63 10/21/17 08:00 O2 Sat by Pulse Oximetry (%) 98 10/21/17 04:34 Constitutional: Yes: No Distress, Calm Cardiovascular: Yes: Regular Rate and Rhythm Respiratory: Yes: CTA Bilaterally Gastrointestinal: Yes: Normal Bowel Sounds, Soft, Abdomen, Obese. No: Tenderness Edema: No Labs: CBC, BMP 10/21/17 07:20 10/21/17 07:20 INR, PTT INR 1.39 (0.82-1.09) H 10/21/17 07:20 Problem List - Problems (1) Abdominal pain Code(s): R10.9 - UNSPECIFIED ABDOMINAL PAIN Qualifiers: Abdominal location: generalized Qualified Code(s): R10.84 - Generalized abdominal pain (2) Elevated liver enzymes Code(s): R74.8 - ABNORMAL LEVELS OF OTHER SERUM ENZYMES (3) Diabetes Code(s): E11.9 - TYPE 2 DIABETES MELLITUS WITHOUT COMPLICATIONS (4) HTN (hypertension), benign Code(s): I10 - ESSENTIAL (PRIMARY) HYPERTENSION Assessment/Plan PLAN LFT trending down iv fluids HIDA pending iv antibiotics D/w GI
[2017-10-21] MEDS: CEFTRIAXONE 1 GM in DEXTROSE 5%-WATER - 50 ML IVPB SCH (13:04)
[2017-10-21] MEDS: amLODIPine BESYLATE 5 MG TABLET (FP) PO SCH (13:06)
[2017-10-21] MEDS: CARVEDILOL 12.5 MG TABLET (FP) PO SCH ×2 (13:06→21:30)
[2017-10-21] MEDS: PANTOPRAZOLE 40 MG TABLET (FP) PO SCH (13:09)
[2017-10-21] MEDS: ISOSORBIDE MONONITRATE 60 MG TAB.SR.24H (FP) PO SCH (13:10)
[2017-10-21] MEDS: DEXTROSE 5%-NORMAL SALINE 1,000 ML IV SCH (13:11)
[2017-10-21] MEDS: ANASTROZOLE 1 MG TABLET PO SCH (14:25)
[2017-10-21] MEDS ORDERED: IBUPROFEN 800 MG/8 ML IJ IVPB PRN (16:05)
--- NOTE | 2017-10-21 18:18 | PN ---
GI Progress Note Subjective: abdominal pain,nausea and vomiting resolved, Hida revealed delayed visualization of the gallbladder and excretionof the tracer to the duodenum, patient is hungry - Objective Vital Signs: Vital Signs Temperature 99.1 F 10/21/17 08:00 Pulse Rate 65 10/21/17 08:00 Respiratory Rate 22 10/21/17 08:00 Blood Pressure 128/63 10/21/17 08:00 O2 Sat by Pulse Oximetry (%) 95 10/21/17 09:00 Constitutional: Well Nourished, Poor Hygeine HENT: Yes: Atraumatic Neck: Yes: Supple Cardiovascular: Yes: Regular Rate and Rhythm Respiratory: Yes: CTA Bilaterally ...Palpate: Yes: Soft. No: Firm/Rigid, Guarding, Hepatomegaly, Mass, Pulsatile Mass, Splenomegaly Labs: CBC, BMP 10/21/17 07:20 10/21/17 07:20 INR, PTT INR 1.39 (0.82-1.09) H 10/21/17 07:20 Problem List - Problems (1) Elevated liver enzymes Assessment/Plan: R> trial of Acitgall 300mg bid Code(s): R74.8 - ABNORMAL LEVELS OF OTHER SERUM ENZYMES (2) Chronic cholecystitis Assessment/Plan: vs Sphincter of oddi dyskenisia R> advance diet if tolerated solid food in am surgical consultation continue oral antibiotics for 7 days Code(s): K81.1 - CHRONIC CHOLECYSTITIS
[2017-10-21] MEDS: URSODIOL 300 MG CAPSULE PO SCH (21:30)
[2017-10-22] MEDS: DEXTROSE 5%-NORMAL SALINE 1,000 ML IV SCH ×2 (05:52→13:20)
[2017-10-22] MEDS: LEVOTHYROXINE NA 100 MCG TABLET (FP) PO SCH (06:06)
[2017-10-22] MEDS: INSULIN SLIDING SCALE (NOVOLOG) 1 VIAL SQ SCH ×4 (06:06→22:29)
--- NOTE | 2017-10-22 06:17 | CONSULT ---
Consult Consult Specialty:: surgery Reason for Consultation:: abdominal pain - History of Present Illness Chief Complaint: abdominal pain History of Present Illness: 77 yr old female with significant PMedical HX of DM , CAD, HLD, S?P STent x3 , present s with acute onset of epigastric pain radiating to the back of severe intensity. She is now completely pain free and asymptomatic since admission - Past Medical History Cardio/Vascular: Yes: CAD, HTN, Hyperlipdemia Pulmonary: Yes: Other (never studied for sleep apnea; denies excessive snoring or excessive fatigue/sleep during the day). No: COPD Gastrointestinal: Yes: GERD Musculoskeletal: Yes: Other (?gout of the left foot) Rheumatology: Yes: Gout Endocrine: Yes: Diabetes Mellitus, Hypothyroidism - Past Surgical History Past Surgical History: Yes: Colonoscopy (4 years ago), Upper Endoscopy (gerd. 3 yrs ago) - Alcohol/Substance Use Hx Alcohol Use: No - Smoking History Smoking history: Never smoked Aproximately how many cigarettes per day: 0 - Social History Usual Living Arrangement: With Spouse Home Medications - Allergies Allergies/Adverse Reactions: Allergies Allergy/AdvReac Type Severity Reaction Status Date / Time No Known Allergies Allergy Verified 10/20/17 12:01 - Home Medications Home Medications: Ambulatory Orders Acetaminophen [Tylenol] 1,000 mg PO TID PRN 10/05/17 Amlodipine Besylate [Norvasc -] 5 mg PO DAILY 10/05/17 Anastrozole [Arimidex -] 1 mg PO DAILY 10/05/17 Aspirin 81 mg PO DAILY 10/05/17 Atorvastatin Ca [Lipitor] 40 mg PO DAILY 10/05/17 Carvedilol [Coreg -] 12.5 mg PO BID 10/05/17 Gemfibrozil 600 mg PO BID 10/05/17 Glipizide 10 mg PO BID 10/05/17 Isosorbide Mononitrate [Isosorbide Mononitrate ER] 60 mg PO DAILY 10/05/17 Levothyroxine [Synthroid -] 100 mcg PO DAILY 10/05/17 Linagliptin/Metformin HCl [Jentadueto 2.5 mg-850 mg Tab] 1 each PO BID 10/05/17 Pantoprazole Sodium 40 mg PO DAILY 10/05/17 Family Disease History - Family Disease History Family Disease History: CA: Daughter (crc) Physical Exam Vital Signs: Vital Signs Temperature 99.2 F 10/22/17 05:48 Pulse Rate 65 10/22/17 05:48 Respiratory Rate 20 10/22/17 05:48 Blood Pressure 137/69 10/22/17 05:48 O2 Sat by Pulse Oximetry (%) 94 L 10/21/17 21:00 Constitutional: Yes: Obese Labs: CBC, BMP 10/21/17 07:20 10/21/17 07:20 Imaging - Results Cat Scan: Report Reviewed, Image Reviewed Ultrasound: Report Reviewed, Image Reviewed MRI: Report Reviewed, Image Reviewed Problem List - Problems (1) Chronic cholecystitis Code(s): K81.1 - CHRONIC CHOLECYSTITIS Assessment/Plan 77 yr old female with complex past medical history presenting with Acute onset of epigastric pain and all imaging modalities suggest chronic cholecystitis. It is my recommendation that she undergo Laparoscopic cholecystectomy. Although this is not urgent but given she is admitted to the hospital I would be happy to perform the operation during this admission or schedule it for next week according to patient and family's wishes. I attempted to contact the daughter without success. If family agrees and medically cleared will plan surgery for tomorrow am.
[2017-10-22] MEDS ORDERED: PT OWN MED DRAWER 7, Y5N ONE (09:12)
[2017-10-22] MEDS: HEPARIN NA (PORCINE) 5,000 UNITS/ML 1ML VIAL SQ SCH ×2 (09:15→22:29)
[2017-10-22] MEDS: URSODIOL 300 MG CAPSULE PO SCH ×2 (09:15→22:29)
[2017-10-22] MEDS: ANASTROZOLE 1 MG TABLET PO SCH (09:15)
[2017-10-22] MEDS: PANTOPRAZOLE 40 MG TABLET (FP) PO SCH (09:15)
[2017-10-22] MEDS: ISOSORBIDE MONONITRATE 60 MG TAB.SR.24H (FP) PO SCH (09:15)
[2017-10-22] MEDS: amLODIPine BESYLATE 5 MG TABLET (FP) PO SCH (09:15)
[2017-10-22] MEDS: CARVEDILOL 12.5 MG TABLET (FP) PO SCH ×2 (09:15→22:29)
--- NOTE | 2017-10-22 11:58 | PN ---
Progress Note, Physician Chief Complaint: Feels well on clear liquid diet tolerating liquids denies any pain or nausea no diarrhea - Current Medication List Current Medications: Active Medications Amlodipine Besylate (Norvasc -) 5 mg PO DAILY [facility] Last Admin: 10/22/17 09:15 Dose: 5 mg Anastrozole (Arimidex -) 1 mg PO DAILY [facility] Last Admin: 10/22/17 09:15 Dose: 1 mg Carvedilol (Coreg -) 12.5 mg PO BID [facility] Last Admin: 10/22/17 09:15 Dose: 12.5 mg Heparin Sodium (Porcine) (Heparin -) 5,000 unit SQ BID [facility] Last Admin: 10/22/17 09:15 Dose: 5,000 unit Metronidazole (Flagyl 500mg Premixed Ivpb -) 500 mg in 100 mls @ 100 mls/hr IVPB Q8H-IV [facility] Last Admin: 10/22/17 09:15 Dose: 100 mls/hr Dextrose/Sodium Chloride (D5-Ns -) 1,000 mls @ 75 mls/hr IV ASDIR [facility] Last Admin: 10/22/17 05:52 Dose: 75 mls/hr Levofloxacin (Levaquin 250 Mg Premixed Ivpb -) 250 mg in 50 mls @ 50 mls/hr IVPB DAILY [facility] Last Admin: 10/22/17 09:15 Dose: 50 mls/hr Insulin Aspart (Novolog Vial Sliding Scale -) 1 vial SQ ACHS [facility]; Protocol Last Admin: 10/22/17 11:29 Dose: 8 units Isosorbide Mononitrate (Imdur -) 60 mg PO DAILY [facility] Last Admin: 10/22/17 09:15 Dose: 60 mg Levothyroxine Sodium (Synthroid -) 100 mcg PO DAILY@0700 [facility] Last Admin: 10/22/17 06:06 Dose: 100 mcg Pantoprazole Sodium (Protonix -) 40 mg PO DAILY [facility] Last Admin: 10/22/17 09:15 Dose: 40 mg Ursodiol (Actigal -) 300 mg PO BID [facility] Last Admin: 10/22/17 09:15 Dose: 300 mg - Objective Vital Signs: Vital Signs Temperature 98.4 F 10/22/17 07:50 Pulse Rate 58 L 10/22/17 07:50 Respiratory Rate 17 10/22/17 07:50 Blood Pressure 150/72 10/22/17 07:50 O2 Sat by Pulse Oximetry (%) 94 L 10/21/17 21:00 Constitutional: Yes: No Distress, Calm Cardiovascular: Yes: Regular Rate and Rhythm Respiratory: Yes: CTA Bilaterally Gastrointestinal: Yes: Normal Bowel Sounds, Soft, Abdomen, Obese. No: Tenderness Edema: No Labs: CBC, BMP 10/21/17 07:20 10/21/17 07:20 INR, PTT INR 1.39 (0.82-1.09) H 10/21/17 07:20 Problem List - Problems (1) Chronic cholecystitis Code(s): K81.1 - CHRONIC CHOLECYSTITIS (2) Elevated liver enzymes Code(s): R74.8 - ABNORMAL LEVELS OF OTHER SERUM ENZYMES (3) Diabetes Code(s): E11.9 - TYPE 2 DIABETES MELLITUS WITHOUT COMPLICATIONS (4) HTN (hypertension), benign Code(s): I10 - ESSENTIAL (PRIMARY) HYPERTENSION (5) Hypothyroid Code(s): E03.9 - HYPOTHYROIDISM, UNSPECIFIED Assessment/Plan PLAN IV fluiods clear liquids Surgical eval noted Pt agrees for surgery tomorrow Keep NPO past midnight Labs,EKG reviewed Pt medically cleared for Surgery Hold AM heparin sc
[2017-10-22 12:42] LABS: BILIRUBIN,DIRECT 0.9 mg/dL (0.0-0.2)
[2017-10-22 12:44] LABS: BILIRUBIN,TOTAL 1.3 mg/dL (0.2-1.0); TOT PROT 6.2 g/dl (6.4-8.2)
[2017-10-22 16:29] LABS: HEP.C VIRUS AB <0.1 s/co ratio (0.0-0.9)
[2017-10-23] MEDS: LEVOTHYROXINE NA 100 MCG TABLET (FP) PO SCH (06:24)
[2017-10-23] MEDS: INSULIN SLIDING SCALE (NOVOLOG) 1 VIAL SQ SCH ×4 (06:24→21:22)
[2017-10-23] MEDS ORDERED: BUPIVACAINE HCL/PF 0.25% (2.5MG/ML) 10 ML VIAL ONE (07:15)
[2017-10-23] MEDS ORDERED: ROCURONIUM BROMIDE 50 MG/5 ML VIAL ONE (07:23)
[2017-10-23] MEDS ORDERED: SUCCINYLCHOLINE CHLORIDE 200 MG/10 ML VIAL ONE (07:23)
[2017-10-23] MEDS ORDERED: PROPOFOL 20 ML ONE (07:23)
[2017-10-23] MEDS ORDERED: ceFAZolin SODIUM 1 GM VIAL ONE ×2 (08:00→15:55)
[2017-10-23] MEDS ORDERED: ceFAZolin SODIUM 1 GM VIAL IVPB ONE (08:01)
[2017-10-23] MEDS ORDERED: BUPIVACAINE HCL/PF 0.25% (2.5MG/ML) 10 ML VIAL IJ ONE (08:11)
[2017-10-23] MEDS ORDERED: DEXAMETHASONE SOD PHOSPHATE 4 MG/1 ML VIAL ONE (08:39)
[2017-10-23] MEDS ORDERED: ONDANSETRON 4 MG/2 ML VIAL ONE (08:39)
--- NOTE | 2017-10-23 08:52 | OP ---
Operative Note - Note: Operative Date: 10/23/17 Pre-Operative Diagnosis: cholecystitits Operation: lap cholecystectomy Findings: acute cholecystitis Post-Operative Diagnosis: Same as Pre-op Surgeon: Rayshawn Henson Anesthesia: General Specimens Removed: Gall bladder Estimated Blood Loss (mls): 10 Operative Report Dictated: Yes
[2017-10-23] MEDS ORDERED: NEOSTIGMINE METHYLSULFATE 0.5 MG/ML - 10 ML MDV ONE (08:54)
[2017-10-23] MEDS ORDERED: GLYCOPYRROLATE 0.2 MG/1 ML VIAL ONE (08:54)
[2017-10-23] MEDS ORDERED: ONDANSETRON 4 MG/2 ML VIAL IVPUSH PRN (09:26)
--- NOTE | 2017-10-23 09:43 | OP ---
DATE OF OPERATION: 10/23/2017 PREOPERATIVE DIAGNOSIS: Chronic cholecystitis. POSTOPERATIVE DIAGNOSIS: Acute on chronic cholecystitis. PROCEDURE: Laparoscopic cholecystectomy. SURGEON: Rayshawn Henson MD COMPLICATIONS: None. Bleeding was minimal and patient tolerated the procedure well. This is a 77-year-old female with a long history of diabetes, hypertension, coronary artery disease, breast cancer, status post breast surgery and chemotherapy, who presents for abdominal pain to the hospital, evaluated in the emergency room and admitted with right upper quadrant pain. Ultrasound showed there were some gallstones. HIDA scan showed evidence of chronic cholecystitis for which surgical consultation was obtained. After evaluation of the patient and discussing the risks and benefits with patient and family they agreed to proceed with surgery at this time. In the operating room she was placed in the supine position. After the induction of general anesthesia was prepped and draped in the usual sterile fashion. After standard timeout the operation was begun. A transverse periumbilical incision and the standard Esteban approach were used to enter the peritoneal cavity. A 12-mm port was introduced through this incision and insufflation of pressure of 15 mmHg was established. Next under direct vision three 5-mm ports were introduced, 1 in the epigastrium and 2 in the right lower quadrant. The patient was then positioned in the reverse Trendelenburg position. The gallbladder was identified and it was retracted superiorly and laterally. The hilar structures appeared to be adhesed to the duodenum and sharp dissection was performed with scissors to release the duodenum from the hilum of the gallbladder. The hilar structures were dissected bluntly using a [place] dissector to expose the cystic duct as well as cystic artery. They both were circumferentially dissected. The cystic duct was somewhat short but clearly a visible entrance into the common bile duct and a clear view of the fundus with clear exposition of the bare area of the level through the triangle of Calot. At this point then the cystic duct and artery were then doubly ligated with Endoclips and divided with Endoshears and the gallbladder was then dissected off the liver bed with the use of a hook dissector carefully to avoid perforation of the gallbladder or injury to the liver bed. The gallbladder was placed in an EndoCatch bag and then removed completely through the umbilical port. Final check for hemostasis was performed and it was controlled with cautery. The ports were al removed under direct vision. The fascia at the umbilical port was closed with 0 Vicryl sutures. The skin at all port sites was closed with 4-0 Monocryl. Dermabond was applied and the patient was returned to the recovery room awake, alert and in stable condition. She tolerated the procedure well. Do [id number]
[2017-10-23] MEDS ORDERED: oxyCODONE HCL 5 MG TABLET PO PRN (09:52)
--- NOTE | 2017-10-23 10:06 | SURG ---
Surgery Sales Donor Recruitment Representative Note Sales Donor Recruitment Representative: Tisha Riggins PA-C Date of Service: 10/23/17 Diagnosis: cholecystitits Procedure: lap cholecystectomy I was present for the entirety of the operative procedure. For further detail, please refer to operative report. Visit type - Case Type Case Type: ED Admission - Emergency Emergency Visit: Yes ED Registration Date: 10/20/17 Care time: The patient presented to the Emergency Department on the above date and was hospitalized for further evaluation of their emergent condition. - New patient This patient is new to me today: Yes Date on this admission: 10/23/17
[2017-10-23] MEDS: URSODIOL 300 MG CAPSULE PO SCH ×2 (11:05→21:20)
[2017-10-23] MEDS: ANASTROZOLE 1 MG TABLET PO SCH (11:05)
[2017-10-23] MEDS: CARVEDILOL 12.5 MG TABLET (FP) PO SCH ×2 (11:05→21:20)
[2017-10-23] MEDS: HEPARIN NA (PORCINE) 5,000 UNITS/ML 1ML VIAL SQ SCH ×2 (11:05→21:20)
[2017-10-23] MEDS: PANTOPRAZOLE 40 MG TABLET (FP) PO SCH (11:06)
[2017-10-23] MEDS: amLODIPine BESYLATE 5 MG TABLET (FP) PO SCH (11:06)
[2017-10-23] MEDS: ISOSORBIDE MONONITRATE 60 MG TAB.SR.24H (FP) PO SCH (11:06)
--- NOTE | 2017-10-23 12:05 | PN ---
Progress Note (short form) - Note Progress Note: patient seen in the recovery room. Status post lap cholecystectomy Comfortable/and sedated Vital Signs Temp 98.2 F 10/23/17 09:10 Pulse 58 L 10/23/17 10:10 Resp 16 10/23/17 10:10 BP 120/56 10/23/17 10:10 Pulse Ox 93 L 10/23/17 10:10 Intake & Output 10/22/17 10/23/17 10/23/17 23:59 11:59 23:59 Intake Total 1465 1300 Output Total 10 Balance 1465 1290 Intake: IV 375 1300 D5-Ns - 1,000 ml @ 75 mls 375 900 /hr IV ASDIR [facility] Rx#: [id number] IVPB 250 Oral 840 Output: Estimated Blood Loss 10 Other: Voiding Method Toilet # Unmeasured Voids Void 3 Bowel Movement No # Bowel Movements 1 Active Medications Amlodipine Besylate (Norvasc -) 5 mg PO DAILY [facility] Last Admin: 10/23/17 11:06 Dose: Not Given Anastrozole (Arimidex -) 1 mg PO DAILY [facility] Last Admin: 10/23/17 11:05 Dose: Not Given Carvedilol (Coreg -) 12.5 mg PO BID [facility] Last Admin: 10/23/17 11:05 Dose: Not Given Fentanyl (Sublimaze Injection -) 50 mcg IVPUSH [id number] PRN PRN Reason: PAIN-PACU ORDER X 4 DOSES ONLY Heparin Sodium (Porcine) (Heparin -) 5,000 unit SQ BID [facility] Last Admin: 10/23/17 11:05 Dose: Not Given Dextrose/Sodium Chloride (D5-Ns -) 1,000 mls @ 75 mls/hr IV ASDIR [facility] Last Admin: 10/22/17 13:20 Dose: Not Given Cefazolin Sodium 1 gm/ (Dextrose) 50 mls @ 100 mls/hr IVPB Q8H [facility] Stop: 10/24/17 01:29 Insulin Aspart (Novolog Vial Sliding Scale -) 1 vial SQ ACHS [facility]; Protocol Last Admin: 10/23/17 11:06 Dose: Not Given Isosorbide Mononitrate (Imdur -) 60 mg PO DAILY [facility] Last Admin: 10/23/17 11:06 Dose: Not Given Levothyroxine Sodium (Synthroid -) 100 mcg PO DAILY@0700 [facility] Last Admin: 10/23/17 06:24 Dose: 100 mcg Ondansetron HCl (Zofran Injection) 4 mg IVPUSH Q6H PRN PRN Reason: NAUSEA AND/OR VOMITING Oxycodone HCl (Roxicodone -) 5 mg PO Q4H PRN PRN Reason: PAIN LEVEL 1-5 Oxycodone HCl (Roxicodone -) 10 mg PO Q4H PRN PRN Reason: PAIN LEVEL 6-10 Pantoprazole Sodium (Protonix -) 40 mg PO DAILY [facility] Last Admin: 10/23/17 11:06 Dose: Not Given Ursodiol (Actigal -) 300 mg PO BID [facility] Last Admin: 10/23/17 11:05 Dose: Not Given CBC, BMP 10/21/17 07:20 10/21/17 07:20 Microbiology 10/20/17 12:50 Blood Culture - Preliminary Blood - Peripheral Venous NO GROWTH OBTAINED AFTER 48 HOURS, INCUBATION TO CONTINUE FOR 3 DAYS. 10/20/17 12:50 Blood Culture - Preliminary Blood - Peripheral Venous NO GROWTH OBTAINED AFTER 48 HOURS, INCUBATION TO CONTINUE FOR 3 DAYS. Physical Constitutional: Yes: comfortable Cardiovascular: Yes: Regular Rate and Rhythm Respiratory: Yes: CTA anteriorly Gastrointestinal: Yes:quite Edema: No assessment and plan Status post lap cholecystectomy Today Comfortable Continue present care DVT prophylaxis monitor lites Will follow Pain control Discussed with nursing staff also Problem List - Problems (1) Chronic cholecystitis Code(s): K81.1 - CHRONIC CHOLECYSTITIS
[2017-10-23] MEDS: oxyCODONE HCL 5 MG TABLET PO PRN (14:40)
[2017-10-23] MEDS: DEXTROSE 5%-NORMAL SALINE 1,000 ML IV SCH (15:42)
[2017-10-23] MEDS ORDERED: INSULIN (NOVOLOG) ASPART 100 UNITS/ML 10ML VIAL ONE (15:55)
[2017-10-23] MEDS ORDERED: DEXTROSE 5%-WATER - 50 ML IVPB ONE (15:55)
[2017-10-23] MEDS: CEFAZOLIN 1 GM in DEXTROSE 5%-WATER - 50 ML IVPB SCH (16:07)
[2017-10-24] MEDS ORDERED: ceFAZolin SODIUM 1 GM VIAL ONE (01:21)
[2017-10-24] MEDS ORDERED: DEXTROSE 5%-WATER - 50 ML IVPB ONE (01:22)
[2017-10-24] MEDS: CEFAZOLIN 1 GM in DEXTROSE 5%-WATER - 50 ML IVPB SCH (01:24)
[2017-10-24] MEDS: DEXTROSE 5%-NORMAL SALINE 1,000 ML IV SCH (01:24)
[2017-10-24] MEDS: oxyCODONE HCL 5 MG TABLET PO PRN (01:31)
[2017-10-24] MEDS: INSULIN SLIDING SCALE (NOVOLOG) 1 VIAL SQ SCH ×2 (06:30→11:08)
--- NOTE | 2017-10-24 06:35 | PN ---
Progress Note, Physician History of Present Illness: s/p lap cholecystectomy, feeling well , reports mild incisional pain - Current Medication List Current Medications: Active Medications Amlodipine Besylate (Norvasc -) 5 mg PO DAILY [facility] Anastrozole (Arimidex -) 1 mg PO DAILY [facility] Carvedilol (Coreg -) 12.5 mg PO BID [facility] Last Admin: 10/23/17 21:20 Dose: 12.5 mg Fentanyl (Sublimaze Injection -) 50 mcg IVPUSH [id number] PRN PRN Reason: PAIN-PACU ORDER X 4 DOSES ONLY Heparin Sodium (Porcine) (Heparin -) 5,000 unit SQ BID [facility] Last Admin: 10/23/17 21:20 Dose: 5,000 unit Dextrose/Sodium Chloride (D5-Ns -) 1,000 mls @ 75 mls/hr IV ASDIR [facility] Last Admin: 10/24/17 01:24 Dose: 75 mls/hr Insulin Aspart (Novolog Vial Sliding Scale -) 1 vial SQ ACHS [facility]; Protocol Last Admin: 10/24/17 06:30 Dose: 8 unit Isosorbide Mononitrate (Imdur -) 60 mg PO DAILY [facility] Levothyroxine Sodium (Synthroid -) 100 mcg PO DAILY@0700 [facility] Last Admin: 10/24/17 06:30 Dose: 100 mcg Ondansetron HCl (Zofran Injection) 4 mg IVPUSH Q6H PRN PRN Reason: NAUSEA AND/OR VOMITING Oxycodone HCl (Roxicodone -) 5 mg PO Q4H PRN PRN Reason: PAIN LEVEL 1-5 Last Admin: 10/24/17 01:31 Dose: 5 mg Oxycodone HCl (Roxicodone -) 10 mg PO Q4H PRN PRN Reason: PAIN LEVEL 6-10 Pantoprazole Sodium (Protonix -) 40 mg PO DAILY [facility] Ursodiol (Actigal -) 300 mg PO BID [facility] Last Admin: 10/23/17 21:20 Dose: 300 mg - Objective Vital Signs: Vital Signs Temperature 98.7 F 10/24/17 06:21 Pulse Rate 68 10/24/17 06:21 Respiratory Rate 21 10/24/17 06:21 Blood Pressure 135/63 10/24/17 06:21 O2 Sat by Pulse Oximetry (%) 98 10/23/17 22:00 Gastrointestinal: Yes: Other (incisions clean and dry) Labs: CBC, BMP 10/21/17 07:20 10/21/17 07:20 INR, PTT INR 1.39 (0.82-1.09) H 10/21/17 07:20 Problem List - Problems (1) Chronic cholecystitis Code(s): K81.1 - CHRONIC CHOLECYSTITIS Assessment/Plan s/p laparoscopic cholecystectomy doing well, tolerating diet Clear for discharge from surgical point of view Follow up in 1 week in the office
[2017-10-24] MEDS ORDERED: LEVOTHYROXINE NA 100 MCG TABLET (FP) PO SCH (07:00)
[2017-10-24 09:31] LABS: HEMATOCRIT 32.9 % (32.4-45.2); HEMOGLOBIN 11.1 GM/dL (10.7-15.3); MCH 31.4 pg (25.7-33.7); MCHC 33.7 g/dl (32.0-36.0); MEAN CELL VOLUME 93.3 fl (80-96); MEAN PLT VOLUME 10.1 fl (7.5-11.1); PLATELET COUNT 152 K/MM3 (134-434); RBC 3.52 M/mm3 (3.60-5.2); RDW 15.1 % (11.6-15.6); WHITE BLOOD COUNT 4.8 K/mm3 (4.0-10.0)
[2017-10-24] MEDS ORDERED: ISOSORBIDE MONONITRATE 60 MG TAB.SR.24H (FP) PO SCH (10:00)
[2017-10-24] MEDS ORDERED: ANASTROZOLE 1 MG TABLET PO SCH (10:00)
[2017-10-24] MEDS ORDERED: amLODIPine BESYLATE 5 MG TABLET (FP) PO SCH (10:00)
[2017-10-24] MEDS ORDERED: PANTOPRAZOLE 40 MG TABLET (FP) PO SCH (10:00)
[2017-10-24 10:01] LABS: ALBUMIN 2.9 g/dl (3.4-5.0); ALK PHOS 147 U/L (45-117); ANION GAP 6 (8-16); BILIRUBIN,TOTAL 0.7 mg/dL (0.2-1.0); BLOOD UREA NITROGEN 14 mg/dL (7-18); CALCIUM 8.8 mg/dL (8.5-10.1); CHLORIDE 107 mmol/L (98-107); CO2 25 mmol/L (21-32); CREATININE 1.3 mg/dL (0.55-1.02); GLUCOSE,RANDOM 268 mg/dL (74-106); POTASSIUM 4.2 mmol/L (3.5-5.1); SGOT/AST 80 U/L (15-37); SGPT/ALT 198 U/L (12-78); SODIUM 138 mmol/L (136-145); TOT PROT 6.1 g/dl (6.4-8.2)
[2017-10-24] MEDS ORDERED: PT OWN MED DRAWER 7, Y5N ONE (10:01)
[2017-10-24] MEDS: URSODIOL 300 MG CAPSULE PO SCH (10:03)
[2017-10-24] MEDS: CARVEDILOL 12.5 MG TABLET (FP) PO SCH (10:03)
[2017-10-24] MEDS: HEPARIN NA (PORCINE) 5,000 UNITS/ML 1ML VIAL SQ SCH (10:03)
[2017-10-24] MEDS ORDERED: INSULIN (NOVOLOG) ASPART 100 UNITS/ML 10ML VIAL ONE (10:53)
--- NOTE | 2017-10-24 12:03 | DS ---
Physical Examination Vital Signs: Vital Signs Temperature 98.7 F 10/24/17 06:21 Pulse Rate 68 10/24/17 06:21 Respiratory Rate 21 10/24/17 06:21 Blood Pressure 135/63 10/24/17 06:21 O2 Sat by Pulse Oximetry (%) 98 10/23/17 22:00 Constitutional: Yes: No Distress, Calm Cardiovascular: Yes: Regular Rate and Rhythm Respiratory: Yes: CTA Bilaterally Gastrointestinal: Yes: Normal Bowel Sounds, Soft, Abdomen, Obese, Tenderness Edema: No Labs: CBC, BMP 10/24/17 09:05 10/24/17 09:05 Discharge Summary Reason For Visit: ABD PAIN,SEPSIS,ELEVATED TRANSAMINASE MEASUREMENT Current Active Problems Abdominal pain (Acute) Chronic cholecystitis (Acute) Elevated liver enzymes (Acute) Sepsis (Acute) - Instructions Diet, Activity, Other Instructions: Discharge Instructions Dear ROSARIO RODRÍGUEZ, Post Operative Instructions Physical activity Resume your normal everyday activity as tolerated no heavy lifting or exercise until seen by your surgeon. You may walk unlimited amounts of and climb stairs. You may resume driving the car when you feel safe and comfortable behind the wheel. Wound care You may shower 2 days after surgery but do not submerge the incisions.Do not apply lotion or ointments to the incisions Diet There are no dietary restrictions. Eat healthy, high-fiber foods. Drink 6 to 8 glasses of liquid each day. This will assist in keeping your bowels are regular. Pain management You may take Tylenol or acetaminophen or Ibuprofen (for example, Motrin, Advil etc.) Any pain prescription medication ordered should be taken as prescribed for moderate to severe pain. Call Dr. Edmondson for any of the following: Severe pain not relieved by medication Fever of 101 or higher Excessive bleeding or drainage on dressing Inability to urinate Call the office to for a post operative appointment. Referrals: Rajiv Lino MD [Primary Care Provider] - Rayshawn Henson [Staff Physician] - Disposition: HOME - Home Medications Comprehensive Discharge Medication List: Ambulatory Orders Amlodipine Besylate [Norvasc -] 5 mg PO DAILY 10/05/17 Anastrozole [Arimidex -] 1 mg PO DAILY 10/05/17 Carvedilol [Coreg -] 12.5 mg PO BID 10/05/17 Glipizide 10 mg PO BID 10/05/17 Isosorbide Mononitrate [Isosorbide Mononitrate ER] 60 mg PO DAILY 10/05/17 Levothyroxine [Synthroid -] 100 mcg PO DAILY 10/05/17 Pantoprazole Sodium 40 mg PO DAILY 10/05/17 Ursodiol [Actigal -] 300 mg PO BID #60 capsule 10/24/17
[2017-10-24 12:27] VITALS: BP 152/77; PULSE 66; TEMP 98.5
--- NOTE | 2017-10-26 11:48 | PATH ---
Surgical Pathology Report Patient Name: ROSARIO RODRÍGUEZ [facility]. Rec. #: [id number] /Age/Gender: 1940 (Age: 77) / F Account: [id number] Location: [address] [place] [address]/[facility] Taken: 10/23/2017 Received: 10/23/2017 Reported: 10/26/2017 Physicians: Do Oakes M.D. Specimen(s) Received GALLBLADDER Clinical History Chronic cholecystitis Final Diagnosis GALLBLADDER, LAPAROSCOPIC CHOLECYSTECTOMY CHRONIC CHOLECYSTITIS. Electronically Signed Kisha Go M.D. Gross Description Received in formalin, labeled "gallbladder," is a 7.5 x 2.5 x 2.5 cm. gallbladder with a 0.5 cm. in length portion of cystic duct attached. The outer surface varies from smooth to shaggy. The lumen contains green bile. No stone is seen. The mucosa is free of masses. The wall of the gallbladder measures 0.1 cm. in thickness. Rough Rice Grader sections are submitted in one cassette. FERNIE/10/23/2017 ashlyn/10/23/2017
== END 2017-10-24 14:32 | disposition home or self-care (01) | DRG 854 ==
LOC: JER 11:34 → JERBED 18:21 → J6S 10-21 04:14
PROVIDERS: ADMIT Internal Medicine; ATTEND Internal Medicine
PROC: 0FT44ZZ Resection of Gallbladder, Percutaneous Endoscopic Approach (ICD-10-PCS; principal; 2017-10-23 07:30)
DX: A41.9 Sepsis, unspecified organism (principal); K81.0 Acute cholecystitis; E87.2 Acidosis; R74.0 Nonspecific elevation of levels of transaminase and lactic acid dehydrogenase [LDH]; C50.912 Malignant neoplasm of unspecified site of left female breast; E11.9 Type 2 diabetes mellitus without complications; I10 Essential (primary) hypertension; E03.9 Hypothyroidism, unspecified; R74.8 Abnormal levels of other serum enzymes; R10.12 Left upper quadrant pain; E78.5 Hyperlipidemia, unspecified; I25.10 Atherosclerotic heart disease of native coronary artery without angina pectoris; Z98.61 Coronary angioplasty status; K81.1 Chronic cholecystitis
CPT/HCPCS: 36415; 71045-TC-FY; 74177-TC; 74181-TC; 76705-TC; 78226-TC; 80053; 80074; 80076; 81003; 81015; 82550; 82803; 82962; 83605; 83690; 83735; 83880; 84100; 84484; 85025; 85027; 85610; 85651; 85730; 86140; 86850; 86870; 86880; 86900; 86901; 86902; 87040; 87086; 88304-TC; 93005; 93010; 94760; 97116-GP; 97161-GP; 99285-25; A9537; J0131; J1644; J7030

== ENCOUNTER 2019-12-18 16:12 | Emergency (ER) | payer OTHER ==
[2019-12-18 16:16] VITALS: BMI 28.3
--- NOTE | 2019-12-18 16:17 | PDOC ---
Rapid Medical Evaluation Chief Complaint: Pain Time Seen by Provider: 12/18/19 16:16 Medical Evaluation: Allergies Allergy/AdvReac Type Severity Reaction Status Date / Time No Known Allergies Allergy Verified 12/18/19 16:16 Vital Signs Temp Pulse Resp BP Pulse Ox 98 F 76 18 178/88 H 99 12/18/19 16:14 12/18/19 16:14 12/18/19 16:14 12/18/19 16:14 12/18/19 16:14 12/18/19 16:16 I have performed a brief in-person evaluation of this patient. CC: left sided abdominal pain x1 day PE: No focal findings Orders: labs, urine, CTAP Patient will proceed to ED for further evaluation. Discharge Disposition - Diagnosis Abdominal pain - Referrals - Patient Instructions - Post Discharge Activity
[2019-12-18] MEDS ORDERED: ACETAMINOPHEN 1000 MG/100 ML VIAL (NON FORMULARY) IVPB ONE (17:22)
[2019-12-18] MEDS ORDERED: SODIUM CHLORIDE 1,000 ML IV STA (17:22)
[2019-12-18] MEDS ORDERED: ACETAMINOPHEN INJECTION 100 ML IVPB ONE (17:31)
[2019-12-18 17:44] LABS: BASO % 0.5 % (0-2.0); EOS % 3.1 % (0-4.5); HEMATOCRIT 39.8 % (32.4-45.2); HEMOGLOBIN 13.3 GM/dL (10.7-15.3); LYMPH % 10.6 % (8-40); MCH 31.4 pg (25.7-33.7); MCHC 33.3 g/dl (32.0-36.0); MEAN CELL VOLUME 94.1 fl (80-96); MEAN PLT VOLUME 10.7 fl (7.5-11.1); MONO % 6.7 % (3.8-10.2); NEUT % 79.1 % (42.8-82.8); PLATELET COUNT 184 K/MM3 (134-434); RBC 4.23 M/mm3 (3.60-5.2); RDW 14.7 % (11.6-15.6); WHITE BLOOD COUNT 6.5 K/mm3 (4.0-10.0)
--- NOTE | 2019-12-18 17:57 | PDOC ---
History of Present Illness - General Chief Complaint: Pain Stated Complaint: L SIDE ABDOMINAL PAIN Time Seen by Provider: 12/18/19 16:16 History Source: Patient, Family Exam Limitations: Language Barrier - History of Present Illness Initial Comments: 12/18/19 17:49 Dick Silva is a 79 Mongolian speaking Female with a PMH of HTN, CAD(s/p stents), gout, Hypothyroidism, cholelithiasis (s/p cholecystectomy?)L.breat Ca (s/p radiation), nephrolithiasis, and s/p hysterectomy, presents with 2D of worsening abdominal pain. She reports that the pain started when she was sleeping, the pain is episodic, 10/10, starting at umbilicus radiating to left flank and left back. She states that nothing makes it better and any movement makes it worse. She took 2 tylenol, without any relief. She denies any nausea, vomiting, constipation, diarrhea, fever, chills, dysuria, hematuria, visible rash, chest pain, palpitations, SOB or cough. Last meal was this morning, able to tolerate PO, no changes in pain associated with food. Last BM was this morning x 2. Severity: moderate Past History - Travel History Traveled outside of the country in the last 30 days: No - Medical History Allergies/Adverse Reactions: Allergies Allergy/AdvReac Type Severity Reaction Status Date / Time No Known Allergies Allergy Verified 12/18/19 16:16 Home Medications: Ambulatory Orders Amlodipine Besylate [Norvasc -] 5 mg PO DAILY 10/05/17 Anastrozole [Arimidex -] 1 mg PO DAILY 10/05/17 Carvedilol [Coreg -] 12.5 mg PO BID 10/05/17 Glipizide 10 mg PO BID 10/05/17 Isosorbide Mononitrate [Isosorbide Mononitrate ER] 60 mg PO DAILY 10/05/17 Levothyroxine [Synthroid -] 100 mcg PO DAILY 10/05/17 Pantoprazole Sodium 40 mg PO DAILY 10/05/17 Ursodiol [Actigal -] 300 mg PO BID #60 capsule 10/24/17 Anemia: No Asthma: No Cancer: Yes (BREAST LEFT) Cardiac Disorders: Yes (STENTS X -2010) CVA: No COPD: No CHF: No DVT: No Dementia: No Diabetes: Yes GI Disorders: Yes (GASTRITIS.) Disorders: No HTN: Yes Hypercholesterolemia: Yes Liver Disease: No Seizures: No Thyroid Disease: Yes (HYPOTHYROIDISM) - Surgical History Abdominal Surgery: No Appendectomy: No Cardiac Surgery: Yes (CARDIAC STENTS X 4, LAST 2010) Cholecystectomy: No Lung Surgery: No Neurologic Surgery: No Orthopedic Surgery: No - Immunization History Immunization Up to Date: Yes - Psycho-Social/Smoking History Smoking Status: No Smoking History: Never smoked Number of Cigarettes Smoked Daily: 0 - Substance Abuse Hx (Audit-C & DAST Scrn) How often the patient has a drink containing alcohol: Never Score: In Men: 4 or > Positive; In Women: 3 or > Positive: 0 Screen Result (Pos requires Nsg. Audit-10AR): Negative Review of Systems - Review of Systems Able to Perform ROS?: Yes Is the patient limited Bengali proficient: Yes Constitutional: No: Chills, Fever, Loss of Appetite, Night Sweats HEENTM: No: Blurred Vision, Nose Congestion, Throat Pain, Difficulty Swallowing Respiratory: No: Cough, Shortness of Breath Cardiac (ROS): Yes: Edema. No: Chest Pain, Palpitations ABD/GI: Yes: Abdominal cramping. No: Abd. Pain w/ defecation, Constipated, Diarrhea, Difficulty Swallowing, Nausea, Poor Appetite, Poor Fluid Intake, Vomiting : Yes: Frequency, Flank Pain, Urgency. No: Burning, Dysuria, Hematuria Musculoskeletal: Yes: Back Pain Integumentary: No: Change in Color, Pruritus, Rash Neurological: No: Headache, Weakness *Physical Exam - Vital Signs Last Vital Signs Temp Pulse Resp BP Pulse Ox 98 F 76 18 178/88 H 98 12/18/19 16:14 12/18/19 16:14 12/18/19 16:14 12/18/19 16:14 12/18/19 16:17 - Physical Exam General Appearance: Yes: Apparent Distress HEENT: positive: EOMI, ELZA. negative: Pharyngeal Erythema, Nasal Congestion, Rhinorrhea Neck: positive: Supple. negative: Tender, Carotid bruit Respiratory/Chest: positive: Lungs Clear. negative: Respiratory Distress, Rapid RR, Crackles, Rales, Rhonchi Cardiovascular: positive: Regular Rhythm, Regular Rate, S1, S2, Edema (chronic b/l LE edema). negative: JVD, Murmur, Gallop/S3, Gallop/S4 Vascular Pulses: Carotid (R): 2+, Carotid (L): 2+, Dorsalis-Pedis (R): 1+, Doralis-Pedis (L): 1+ Gastrointestinal/Abdominal: positive: Normal Bowel Sounds, Tender (mild tenderness in epigastric and LUQ), Soft, Rebound Musculoskeletal: negative: CVA Tenderness, CVA Tenderness (R), CVA Tenderness (L), Vertebral Tenderness Extremity: positive: Pedal Edema (chronic b/l LE edema). negative: Calf Tenderness Integumentary: negative: Rash (No visible rash in dermatomal distribution in L.abd/flank) Neurologic: positive: Fully Oriented, Alert ED Treatment Course - LABORATORY CBC & Chemistry Diagram: 12/18/19 17:07 12/18/19 18:15 - ADDITIONAL ORDERS Additional order review: 12/18/19 17:07 RBC 4.23 MCV 94.1 MCHC 33.3 RDW 14.7 MPV 10.7 Neutrophils % 79.1 Lymphocytes % 10.6 D Monocytes % 6.7 Eosinophils % 3.1 D Basophils % 0.5 - Medications Given in the ED: ED Medications Discontinued Medications Generic Name Dose Route Start Last Admin Trade Name Freq PRN Reason Stop Dose Admin Acetaminophen 1,000 mg 12/18/19 17:22 12/18/19 17:29 Ofirmev Injection - IVPB 12/18/19 17:23 1,000 mg ONCE ONE Administration Medical Decision Making - Medical Decision Making 12/18/19 18:04 79 Mongolian speaking Female with a PMH of HTN, CAD(s/p stents), gout, L.breat Ca (s/p radiation), nephrolithiasis, and s/p hysterectomy, presents with 2D of worsening abdominal pain. #Nephrolithiasis vs less likely herpes Zoster vs Diverticulitis vs Pyelonephritis - CTAB pending - CBC, CMP, Lactate - Pain control with IV Tylenol - UA and Urine Culture 12/18/19 18:07 Discharge - Discharge Information Problems reviewed: Yes Clinical Impression/Diagnosis: Abdominal pain Qualifiers: Abdominal location: left upper quadrant Qualified Code(s): R10.12 - Left upper quadrant pain Condition: Stable Disposition: HOME - Follow up/Referral Referrals: Jaziel Tucker MD [Primary Care Provider] - - Patient Discharge Instructions Patient Printed Discharge Instructions: DI for Shingles, Acute Abdominal Pain Additional Instructions: you visited [facility] on 12/18/19 for Left abdominal pain. you did not have any active chest pain, fever, chills, nausea, vomiting, diarrhea, or constipation. CT abdomen was negative for any emergent pathology. IV tylenol 1000mg and Morphine 1mg was given to control your pain. Labs : CBC wnl (within normal limits), UA wnl, CMP elevated glucose 222 and Lipase 412 w/o any acute pancreatic pathology on imaging. Your pain could be early herpes zoster, pain along a dermatome w/o rash, please keep an eye for any development of rash. No indications for admissions at this time. Your BP 170/67, you stated that you did not take your BP medications today. Please take your home medications and follow up with your outpatient PCP in the morning for pain and elevated blood sugar. Please take extra strength tylenol as need for pain. Do not take more than 4000mg or 8 tablets. If your pain does not improve, worsens, if you experience any chest pain, SOB, severe back pain, difficulty with urination or defecation, fever, and chills, please return to ER immediately. - Post Discharge Activity
[2019-12-18 18:16] LABS: BILIRUBIN,TOTAL 0.6 mg/dL (0.2-1); BLOOD UREA NITROGEN 23.6 mg/dL (7-18); CREATININE 1.3 mg/dL (0.55-1.3); TOT PROT 7.8 g/dl (6.4-8.2)
[2019-12-18 18:58] LABS: PH,URINE 7.5 (5.0-8.0); URINE APPEARANCE CLEAR; URINE BILIRUBIN NEGATIVE (NEGATIVE); URINE COLOR YELLOW; URINE GLUCOSE (UA) 1+ (NEGATIVE); URINE KETONE NEGATIVE (NEGATIVE); URINE LEUK ESTERASE NEGATIVE (NEGATIVE); URINE NITRITE NEGATIVE (NEGATIVE); URINE PROTEIN TRACE (NEGATIVE); URINE UROBILINOGEN 0.2 mg/dL (0.2-1.0)
[2019-12-18] MEDS ORDERED: morphine CARPU-JECT 2 MG/1 ML DISP.SYRIN IVPUSH ONE (20:27)
[2019-12-18] MEDS ORDERED: MORPHINE SULFATE 2 MG/ML VIAL ONE (20:37)
[2019-12-18 21:24] VITALS: TEMP 98.6
--- NOTE | 2019-12-18 21:44 | PDOC ---
Documentation entered by Susy Srivastava SCRIBE, acting as scribe for Tricia Romero MD. Tricia Romero MD: This documentation has been prepared by the vangieibeAtif Ana, SCRIBE, under my direction and personally reviewed by me in its entirety. I confirm that the documentation accurately reflects all work, treatment, procedures, and medical decision making performed by me. Attending Attestation - Resident Resident Name: HansPablo scott - ED Attending Attestation I have performed the following: I have examined & evaluated the patient, The case was reviewed & discussed with the resident, I agree w/resident's findings & plan, Exceptions are as noted - HPI HPI: 12/18/19 16:58 Patient is a 79 year old female with a significant past medical history of breast cancer, hypertension, CAD, DM, GERD, HLD, gout, hepatic steatosis, hypothyroidism, and stents (4), who presents to the ED with abdominal pain x2 days. Patient described the pain as a "crampy" feeling that radiates to her back along with increased urination. Patient denies: fevers, chills, nausea, vomiting, diarrhea Allergies: NKDA - Physicial Exam PE: 12/18/19 21:24 wnwd 79 yo female p/w band like pain that follows a dermatome from left midline of her abdomen to her left back 12/18/19 21:29 head ncat neck no midline tenderness lungs no wheezing, no crackles cvs [id number] abdomen no rebound, no guarding skin no vesicles evident on her abdomen or back extremities no erythema, no edema neuro axox3,ambulatory - Medical Decision Making 12/18/19 21:32 labs reviewed ekg nsr @ 63 bpm no leukocytosis, normal renal function ct scan abd/pel w contrast : no acute abdominal pathology, no aapendicits, no sbo, no abscess, no diverticulitis, aorta wnl benign abd exam UA negative pt describes the pain as intermittent pt d/c home Discharge - Discharge Information Problems reviewed: Yes Clinical Impression/Diagnosis: Abdominal pain Condition: Stable Disposition: HOME - Follow up/Referral Referrals: Jaziel Tucker MD [Primary Care Provider] - - Patient Discharge Instructions Patient Printed Discharge Instructions: Acute Abdominal Pain, DI for Shingles Additional Instructions: you visited [facility] on 12/18/19 for Left abdominal pain. you did not have any active chest pain, fever, chills, nausea, vomiting, diarrhea, or constipation. CT abdomen was negative for any emergent pathology. IV tylenol 1000mg and Morphine 1mg was given to control your pain. Labs : CBC wnl (within normal limits), UA wnl, CMP elevated glucose 222 and Lipase 412 w/o any acute pancreatic pathology on imaging. Your pain could be early herpes zoster, pain along a dermatome w/o rash, please keep an eye for any development of rash. No indications for admissions at this time. Your BP 170/67, you stated that you did not take your BP medications today. Please take your home medications and follow up with your outpatient PCP in the morning for pain and elevated blood sugar. Please take extra strength tylenol as need for pain. Do not take more than 4000mg or 8 tablets. If your pain does not improve, worsens, if you experience any chest pain, SOB, severe back pain, difficulty with urination or defecation, fever, and chills, please return to ER immediately. - Post Discharge Activity
[2019-12-18 22:32] VITALS: BP 165/70; PULSE 71
--- NOTE | 2019-12-19 09:56 | EKG ---
Test Reason : Blood Pressure : / mmHG Vent. Rate : 063 BPM Atrial Rate : 063 BPM P-R Int : 144 ms QRS Dur : 086 ms QT Int : 392 ms P-R-T Axes : 048 -22 034 degrees QTc Int : 401 ms NORMAL SINUS RHYTHM NORMAL ECG WHEN COMPARED WITH ECG OF 20-OCT-2017 12:34, VENT. RATE HAS DECREASED BY 40 BPM Confirmed by Gwyn Hutchison ([id number]) on 12/19/2019 9:56:17 AM Referred By: Confirmed By:Gwyn Hutchison
== END 2019-12-18 22:33 | disposition home or self-care (01) ==
LOC: JER 16:12
PROC: 3E033NZ Introduction of Analgesics, Hypnotics, Sedatives into Peripheral Vein, Percutaneous Approach (ICD-10-PCS; principal; 2019-12-18)
PROC: 3E033GC Introduction of Other Therapeutic Substance into Peripheral Vein, Percutaneous Approach (ICD-10-PCS; 2019-12-18)
PROC: 3E0337Z Introduction of Electrolytic and Water Balance Substance into Peripheral Vein, Percutaneous Approach (ICD-10-PCS; 2019-12-18)
DX: R10.12 Left upper quadrant pain (principal)
CPT/HCPCS: 36415; 74177-TC; 80053; 81003; 83605; 83690; 84132; 85025; 87086; 93005; 93010; 99285-25; J0131; Q9967

== ENCOUNTER 2020-01-06 05:05 | Day surgery (SDC) | payer OTHER ==
[2020-01-05 07:50] VITALS: BMI 26.1
[2020-01-06 10:30] VITALS: TEMP 97.1
[2020-01-06 11:08] VITALS: BP 156/69; PULSE 62
--- NOTE | 2020-01-09 15:40 | PATH ---
Surgical Pathology Report Patient Name: ROSARIO RODRÍGUEZ [facility]. Rec. #: [id number] /Age/Gender: 1940 (Age: 79) / F Account: [id number] Location: [facility] Taken: 01/06/2020 Received: 01/06/2020 Reported: 01/09/2020 Physicians: Nayan Aguirre M.D. Specimen(s) Received A: DUODENAL ULCER B: STOMACH Clinical History Gastric pain Postoperative diagnosis: Duodenal ulcer-clean based, small antral ulcer Final Diagnosis A. DUODENAL ULCER, BIOPSY: DUODENAL MUCOSA WITH MODERATE ACUTE AND CHRONIC DUODENITIS. B. STOMACH, RANDOM, BIOPSY: GASTRIC BODY MUCOSA WITH MILD CHRONIC GASTRITIS. IMMUNOHISTOCHEMICAL STAIN FOR H. PYLORI IS NEGATIVE. Positive and negative controls (internal if applicable) show appropriate results. Electronically Signed Kisha Go M.D. Gross Description A. Received in formalin, labeled "biopsy duodenal ulcer" are 2 lund, irregular portions of soft tissue averaging 0.3 cm. in greatest dimension. The specimens are submitted in toto in one cassette. B. Received in formalin, labeled "biopsy stomach random" is a lund, irregular portion of soft tissue measuring 0.4 cm. in greatest dimension. The specimen is submitted in toto in one cassette. /01/06/2020 [facility]01/06/2020
== END 2020-01-06 11:22 | disposition home or self-care (01) ==
LOC: JASU-ENDO 05:05
PROVIDERS: ATTEND Internal Medicine Gastroenterology
PROC: 0DB68ZX Excision of Stomach, Via Natural or Artificial Opening Endoscopic, Diagnostic (ICD-10-PCS; 2020-01-06)
PROC: 0DB98ZX Excision of Duodenum, Via Natural or Artificial Opening Endoscopic, Diagnostic (ICD-10-PCS; principal; 2020-01-06 11:00)
DX: K29.50 Unspecified chronic gastritis without bleeding (principal); K29.80 Duodenitis without bleeding
CPT/HCPCS: 88305-TC; 88342-TC

== ENCOUNTER 2020-08-27 20:49 | Emergency (ER) | payer OTHER ==
[2020-08-27 21:14] VITALS: BP 107/58; PULSE 84; TEMP 98; BMI 32.4
[2020-08-27] MEDS ORDERED: MECLIZINE HCL 25 MG TABLET (FP) ONE (21:25)
[2020-08-27] MEDS ORDERED: MECLIZINE HCL 25 MG TABLET (FP) PO ONE (21:32)
== END 2020-08-27 22:12 | disposition home or self-care (01) ==
LOC: FER 20:49
DX: R42 Dizziness and giddiness (principal)
CPT/HCPCS: 70450-TC; 99284-25

== ENCOUNTER 2020-11-06 09:41 | Emergency (ER) | payer OTHER ==
[2020-11-06 10:02] VITALS: BP 145/88; PULSE 79; TEMP 98.9; BMI 31.2
[2020-11-06] MEDS ORDERED: ACETAMINOPHEN 500 MG TABLET (FP) PO ONE (10:14)
[2020-11-06] MEDS ORDERED: LIDOCAINE 5% TOPICAL PATCH TP ONE (10:14)
[2020-11-06] MEDS ORDERED: ACETAMINOPHEN 500 MG TABLET (FP) ONE (10:34)
[2020-11-06] MEDS ORDERED: LIDOCAINE 5% TOPICAL PATCH ONE (10:35)
[2020-11-06 11:23] LABS: BASO % 4.2 % (0-2.0); EOS % 6.4 % (0-4.5); HEMATOCRIT 32.4 % (32.4-45.2); HEMOGLOBIN 10.9 GM/dl (10.7-15.3); LYMPH % 12.7 % (8-40); MCHC 33.7 g/dl (32.0-36.0); MEAN PLT VOLUME 9.4 fl (7.5-11.1); MONO % 8.8 % (3.8-10.2); NEUT % 67.9 % (42.8-82.8); PLATELET COUNT 206 10^3/uL (134-434); RBC 3.53 M/mm3 (3.60-5.2); RDW 14.7 % (11.6-15.6); WHITE BLOOD COUNT 5.9 K/mm3 (4.0-10.8)
[2020-11-06 11:40] LABS: ALBUMIN 3.5 g/dl (3.4-5.0); BILIRUBIN,TOTAL 0.8 mg/dl (0.2-1); CALCIUM 9.9 mg/dl (8.5-10); CREATININE 1.5 mg/dl (0.55-1.3); MAGNESIUM 1.6 mg/dL (1.8-2.4); TOT PROT 6.5 g/dl (6.4-8.2)
[2020-11-06 11:49] LABS: INR 1.17 (0.82-1.09)
[2020-11-06] MEDS ORDERED: MAGNESIUM OXIDE 400 MG TABLET (FP) PO ONE (11:53)
[2020-11-06] MEDS ORDERED: CEPHALEXIN MONOHYDRATE 500 MG CAPSULE (UD) PO ONE (12:27)
[2020-11-06] MEDS ORDERED: SULFAMETHOXAZOLE/TRIMETHOPRIM 800MG/160MG D.S. TABLET PO ONE (12:27)
[2020-11-06] MEDS ORDERED: SULFAMETHOXAZOLE/TRIMETHOPRIM 800MG/160MG D.S. TABLET ONE (12:40)
[2020-11-06] MEDS ORDERED: CEPHALEXIN MONOHYDRATE 500 MG CAPSULE (UD) ONE (12:40)
[2020-11-06 13:01] LABS: N-TERMINAL BNP 95.4 pg/ml (5-450)
[2020-11-06] MEDS ORDERED: LIDOCAINE PATCH REMOVAL MC SCH (22:00)
== END 2020-11-06 13:16 | disposition home or self-care (01) ==
LOC: FER 09:41
DX: I83.028 Varicose veins of left lower extremity with ulcer other part of lower leg (principal); M54.16 Radiculopathy, lumbar region; L03.116 Cellulitis of left lower limb
CPT/HCPCS: 36415; 72131-TC; 80053; 82550; 83735; 83880; 84484; 85025; 85610; 85651; 86140; 93971-TC; 99284-25